=== PATIENT | male | born 1960 | race Two or more races ===

== ENCOUNTER 2020-01-29 11:15 | Outpatient (REF) | payer MEDICARE, MEDICAID, SELFPAY | END 2020-01-29 11:16 | disposition home or self-care (01) | LOC: HO.LAB 11:15 | PROVIDERS: PCP Internal Medicine; Visit Provider Internal Medicine | DX: Z20.828 Contact with and (suspected) exposure to other viral communicable diseases (principal) | CPT/HCPCS: 87635 ==

== ENCOUNTER → 2020-03-28 11:02 | Outpatient (BNV) | payer MEDICARE, MEDICAID, SELFPAY | PROVIDERS: PCP Internal Medicine; Visit Provider Internal Medicine Medical Oncology | DX: D64.9 Anemia, unspecified (principal) | CPT/HCPCS: 99213; 99214 ==

== ENCOUNTER → 2020-07-05 13:56 | Outpatient (BNVA) | payer MEDICARE, MEDICAID, SELFPAY | PROVIDERS: PCP Internal Medicine; Visit Provider Hospitalist | DX: J45.40 Moderate persistent asthma, uncomplicated (principal); G47.33 Obstructive sleep apnea (adult) (pediatric); Z99.89 Dependence on other enabling machines and devices | CPT/HCPCS: 99212 ==

== ENCOUNTER 2021-07-06 12:57 | Outpatient (REF) | payer MEDICARE, MEDICAID, SELFPAY ==
--- NOTE | 2021-07-06 15:07 | PFT_ITS ---
INDICATION: Cough. SPIROMETRY: The FEV1 to FVC of 84% with an FEV1 of 1.95 L, which is 65% predicted and an FVC of 2.31 L, which is 59% predicted. No significant response to bronchodilators noted. Maximum voluntary ventilation 78% predicted. LUNG VOLUMES: Total lung capacity 70% predicted with an expiratory reserve volume of 11% predicted. DIFFUSION CAPACITY: DLCO 68% predicted. COMPARISONS: None. INTERPRETATION: No obstructive ventilatory defect. No significant response to bronchodilators noted. There is some mild decrease in maximum voluntary ventilation secondary to likely deconditioning. The patient, however, has a restrictive ventilatory defect consistent with moderate restrictive lung disease. This is likely due to his body habitus, although cannot rule out any underlying interstitial lung disease or neuromuscular conditions. The patient also has a diffusion impairment that does improve when correcting for the alveolar volume. The clinical correlation warranted. Zack Powell MD MR/MODL / [id number]
== END 2021-07-06 12:58 | disposition home or self-care (01) ==
LOC: HO.RESP 12:57
PROVIDERS: PCP Internal Medicine; Visit Provider Hospitalist
DX: J45.40 Moderate persistent asthma, uncomplicated (principal); J98.4 Other disorders of lung
CPT/HCPCS: 94060; 94727; 94729; 99212

== ENCOUNTER → 2022-02-05 12:50 | Outpatient (BNVA) | payer MEDICARE, MEDICAID, SELFPAY | PROVIDERS: PCP Internal Medicine; Visit Provider Hospitalist | DX: J45.40 Moderate persistent asthma, uncomplicated (principal); G47.33 Obstructive sleep apnea (adult) (pediatric); J98.4 Other disorders of lung; Z99.89 Dependence on other enabling machines and devices | CPT/HCPCS: 99212 ==

== ENCOUNTER → 2022-10-08 10:43 | Outpatient (BNVA) | payer MEDICARE, MEDICAID, SELFPAY | PROVIDERS: PCP Internal Medicine; Visit Provider Hospitalist | DX: J45.40 Moderate persistent asthma, uncomplicated (principal); J98.4 Other disorders of lung; G47.33 Obstructive sleep apnea (adult) (pediatric); Z99.89 Dependence on other enabling machines and devices | CPT/HCPCS: 99212 ==

== ENCOUNTER 2022-11-28 10:46 | Outpatient (REF) | payer MEDICARE, MEDICAID, SELFPAY ==
--- NOTE | ~2022-11-28 | XR_ITS ---
EXAMINATION: XR CHEST CLINICAL INFORMATION: Other disorders of lung COMPARISON: May 2019. TECHNIQUE: 2 views of the chest were obtained. FINDINGS: No airspace and solid aspiration noted. Pulmonary vascularity unremarkable. No evidence for hilar adenopathy. There is slight blunting in a posterior sulcus which could reflect a minimal effusion or pleural thickening/reaction. XR/XR chest 2V IMPRESSION: No airspace infiltrates. Minimal blunting of a posterior sulcus on the lateral view may be related to a minimal effusion or pleural thickening/reaction.
== END 2022-11-28 10:47 | disposition home or self-care (01) ==
LOC: HO.XRAY 10:46
PROVIDERS: Visit Provider Hospitalist
DX: J98.4 Other disorders of lung (principal)
CPT/HCPCS: 71046

== ENCOUNTER 2023-01-08 08:46 | Outpatient (AMB) | payer MEDICARE, MEDICAID, SELFPAY ==
--- NOTE | 2023-01-08 08:52 | MHC.OFFVIS ---
Intake Intake Visit Reasons: BPH with lower urinary symtoms/ PSA 3.8 Intake Note: New Patient presents for initial visit BPH (psa 3.8) Urology Medications: tamsulosin Blood Thinner: none PVR: 0ml's Audiology Director Required: Yes Audiology Director Name: Helena Accompanied by: Self / Same As Patient Allergies No Known Allergies Allergy (Verified 01/08/23 09:30) Medication List - Last Reconciled 01/08/23 by DANIKA EganP- albuterol sulfate 90 mcg/actuation 2 puffs PO Q6H PRN albuterol sulfate 2.5 mg (3 mL) inhalation Q6H PRN 30 days allopurinol 1 tab PO DAILY atorvastatin 40 mg PO DAILY carvedilol 1 tab PO BID cholecalciferol (vitamin D3) 50 mcg PO DAILY citalopram mg PO insulin glargine (Basaglar KwikPen U-100 Insulin) 12 units subcut BEDTIME meclizine 1 tab PO TID metformin 1,000 mg PO BID montelukast 10 mg PO QPM pantoprazole 1 tab PO BID quetiapine 25 - 50 mg PO BEDTIME Symbicort 160-4.5 mcg/actuation (budesonide-formoterol) 2 puffs PO BID NS tamsulosin 0.4 mg PO DAILY valsartan 1 tab PO DAILY HPI HPI Comments History of Present Illness Details Pedro is a very pleasant 62-year-old Greenlandic-speaking male patient of . He has a past medical history of chronic restrictive lung disease, RAMONA on CPAP, vertigo, gout, hyperlipidemia, hypertension, palpitations, diabetes, asthma, and anemia.He presents to the office today as a new patient for lower urinary tract symptoms and elevated PSA. In discussion with the patient today reports to be doing and feeling well. It appears PSA was drawn by PCP in noted to be 3.8 in September of this year. He discusses having urinary urgency and frequency. However when asked he does report large voids. He reports having started tamsulosin with PCP and feels urination symptoms have improved. He otherwise denies incontinence, nocturia, hematuria, dysuria, foul smelling urine, changes to urinary stream, flank pain, fever, and or chills. He is happy with his current voiding parameters on flomax 0.4mg daily. He discusses PCP performing EMMETT and noted enlarged prostate. Discussed at length redraw of PSA with no sex the night before, no caffeine morning of, and no heavy lifting 1-2 days prior. Will obtain retroperitoneal ultrasound for further assessment evaluation. In office urinalysis results reviewed with the patient today. PVR 0 mL. He otherwise offers no other issues or concerns at this time. [facility] Medical History Chronic restrictive lung disease RAMONA on CPAP Vertigo Gout Hyperlipemia Hypertension Heart palpitations Diabetes Asthma Anemia Surgical History H/O eye surgery Hx of cholecystectomy H/O knee surgery Family History Other No family history of cancer Social History Household Members: Significant Other Housing: Apartment Are you a primary care nurse rn to a significant other at home: No Do you presently have visiting nurse or other home services: Yes Alcohol intake: former Patient Tobacco Use Status: Never used Tobacco Substance Use Type: Crack/Cocaine service: No Current occupational status: disabled Review of Systems Const Reports as per HPI Eyes Reports no additional complaints ENT Reports no additional complaints Card Reports as per HPI Resp Reports as per HPI GI Reports no additional complaints Reports as per HPI Musc Reports no additional complaints Neuro Reports no additional complaints Psych Reports no additional complaints Endo Reports as per HPI Perez/Lymph Reports no additional complaints Aller/Immun Reports no additional complaints Physical Exam Const General: cooperative, healthy appearing, comfortable, no acute distress, well developed, alert and awake Orientation/consciousness: patient oriented x3 Limitations: no limitations HEENT Head: Yes normal to inspection, Yes normocephalic and Yes atraumatic Ears: hearing grossly normal bilaterally Eyes General: appearance normal, both eyes and all related structures Neck Neck: Yes normal visual inspection and Yes trachea midline Chest Chest palpation & inspection: normal inspection of the chest Resp Effort & Inspection: normal respiratory effort and able to speak in complete sentences Cardio Rate: regular rate GI Inspection: Yes normal to inspection General: Yes no CVA tenderness Back/Spine/Pelvis Back: no CVA tenderness Skin General skin exam: no rashes or lesions noted Neuro General: patient oriented x3 Extrem General: Yes normal to inspection Psych Appearance: grossly normal and well kempt Mental Status: mental status grossly normal Speech and movement: Normal speech and movement present and Clear speech present Affect: normal affect Attitude: cooperative Thought process: Normal thought process present Thought content: Normal thought content present Insight: Good insight present (Psych) Judgement: Good judgement present (Psych) Office Procedures Post Void Residual Post Residual Void Post Void Residual (PVR): 0 42311-Cjzw Void Residual by ultrasound Results AMB Urinalysis, Automated UA Leukoctes 0 Martha/uL Last Edit by Lexii Montoya on 01/08/23 09:05 UA Nitrite Negative Last Edit by Lexii Montoya on 01/08/23 09:05 UA Urobilinogen 0.2 mg/dL Last Edit by [employer] Montoya on 01/08/23 09:05 UA Protein 30 mg/dL Last Edit by Lexii Montoya on 01/08/23 09:05 UA pH 6.5 Last Edit by Lexii Montoya on 01/08/23 09:05 UA Blood 0 Chinmay/uL Last Edit by Lexii Montoya on 01/08/23 09:05 UA Specific [place] 1.010 Last Edit by The Author Hubjanak Montoya on 01/08/23 09:05 UA Ketone Negative Last Edit by [employer] on 01/08/23 09:05 UA Bilirubin 0 mg/dL Last Edit by [employer] Montoya on 01/08/23 09:05 UA Glucose 0 mg/dL Last Edit by Marco AntonioWuxi Q[employer] Montoya on 01/08/23 09:05 Results Reviewed Results Reviewed: Laboratory Last Values Urine pH (Auto) 6.5 01/08/23 08:55 Specific [place] (Auto) 1.010 01/08/23 08:55 Urine Protein (Auto) 30 mg/dL 01/08/23 08:55 Glucose (UA)(Auto) 0 mg/dL 01/08/23 08:55 Urine Ketones (Auto) Negative 01/08/23 08:55 Urine Blood (Auto) 0 Chinmay/uL 01/08/23 08:55 Urine Nitrite (Auto) Negative 01/08/23 08:55 Urine Bilirubin (Auto) 0 mg/dL 01/08/23 08:55 Urine Urobilinogen (Auto) 0.2 mg/dL 01/08/23 08:55 Leukocyte Esterase (Auto) 0 Martha/uL 01/08/23 08:55 Assessment & Plan Assessment & Plan (1) Elevated PSA: Code(s): R97.20 - Elevated prostate specific antigen [PSA] (2) Urinary urgency: Code(s): R39.15 - Urgency of urination Plan In office urinalysis results reviewed with the patient today; as noted above. PVR 0 mL. Continue Flomax 0.4 mg as prescribed. Will obtain redraw of PSA with no sex the night before, no caffeine morning of and no heavy lifting 1-2 days prior to lab draw. Will obtain retroperitoneal ultrasound for further assessment evaluation. Discussed possible near future in office cystoscopy if symptoms persist and/or worsen. EMMETT offered however deferred patient reports completed with PCP. Follow-up in 4-6 weeks with imaging and lab to be completed prior or sooner with any questions, concerns, and or issues. Orders: Orders PSA,Total (Free>4and<10) Today R97.20 - Elevated prostate specific antigen [PSA] AMB Urinalysis Automated Today Z13.9 - Encounter for screening, unspecified AMB Post Void Residual by ultrasound Today Z13.9 - Encounter for screening, unspecified US retroperitoneal comp Today R39.15 - Urgency of urination Patient Instructions: The patient had an opportunity to ask questions regarding the treatment plan. All questions were answered. Physical exam, labs, and imaging were discussed and reviewed in detail. As well as risks, benefits, and discussion of treatment choices. No major barriers to understanding were identified. The patient expressed understanding and agreement with the above treatment plan. The patient was made aware they should contact our office by phone for worsening of their current condition, the appearance of new symptoms, or with any questions or concerns. Compliance is encouraged with any medications and follow up testing that is ordered. It is a privilege to be allowed the opportunity to participate in? your urological care.? Again, if you have any questions or concerns If you have any questions or concerns please do not hesitate to contact me. The office is [phone]. This note is constructed using voice recognition software. While every effort has been made to ensure accuracy environmental studies professor errors may have been included. Yours sincerely, JOVANI Egan Coding Level of Care Code New Pt Level 3 (95692) Diagnoses Elevated PSA R97.20 Urinary urgency R39.15 CPT Codes Post Residual Void - PVR CPT Code: 52634-Wmic Void Residual by ultrasound ([id number])
== END 2023-01-08 13:21 | disposition home or self-care (01) ==
PROVIDERS: PCP Internal Medicine; Visit Provider Nurse Practitioner Family
DX: R97.20 Elevated prostate specific antigen [PSA] (principal); R39.15 Urgency of urination; Z13.9 Encounter for screening, unspecified
CPT/HCPCS: 99203

== ENCOUNTER → 2023-01-08 08:46 | Outpatient (BNVA) | payer MEDICARE, MEDICAID, SELFPAY | PROVIDERS: PCP Internal Medicine; Visit Provider Nurse Practitioner Family | DX: R97.20 Elevated prostate specific antigen [PSA] (principal); R39.15 Urgency of urination | CPT/HCPCS: 51798; 81003 ==

== ENCOUNTER 2023-01-11 07:08 | Outpatient (REF) | payer MEDICARE, MEDICAID, SELFPAY ==
[2023-01-11 11:13] LABS: MANUAL DIFF FLAG NO
[2023-01-11 11:41] LABS: Basophils Percent Auto 0.8 % (0-2); Eosinophils Absolute Auto 0.3 X10*3/uL (0.0-0.4); Eosinophils Percent Auto 5.6 % (0-4); Hematocrit 35.1 % (42.0-52.0); Hemoglobin 10.9 g/dl (14.0-18.0); Imm Gran Abs Auto 0.01 X10*3/uL (0.00-0.03); Imm Gran Pct Auto 0.2 % (0.0-0.4); Mean Corpuscular HGB Conc 31.1 g/dl (31.0-36.0); Mean Corpuscular Hemoglobin 25.3 pg (27.0-33.0); Mean Corpuscular Volume 81.6 fL (80.0-98.0); Mean Platelet Volume 12.7 fL (9.4-12.4); Monocytes Absolute Auto 0.4 X10*3/uL (0.1-1.2); Monocytes Percent Auto 8.3 % (2-11); Neutrophils Absolute Auto 2.6 x10*3/uL (2.0-8.3); Neutrophils Percent Auto 48.1 % (45-73); Platelet Count 225 X10*3/uL (160-400); Red Cell Distribution Width 14.6 % (11.0-16.0); White Blood Count 5.3 X10*3/uL (4.8-10.8)
[2023-01-11 12:07] LABS: Alanine Aminotransferase 20 U/L (0-40); Alkaline Phosphatase 46 U/L (39-117); Anion Gap 10 (12-20); Aspartate Amino Transferase 21 U/L (5-37); Bilirubin Total 0.5 mg/dL (0.0-1.0); Blood Urea Nitrogen 13 mg/dL (9-16); Calcium 9.3 mg/dL (8.4-10.2); Carbon Dioxide 30 mmol/L (22-29); Chloride 107 mmol/L (96-108); Estimated Glomerular Filt Rate > 60; Glucose Random 95 mg/dL (60-115); Iron 41 mcg/dL (45-160); Percent Iron Saturation 16 % (15-50); Potassium 4.5 mmol/L (3.3-5.1); Sodium 142 mmol/L (135-145); Total Iron Binding Capacity 254 mcg/dL (228-428); Total Protein 7.1 g/dL (6.5-8.0); Unsaturated Iron Binding 213 ug/dL
[2023-01-11 12:19] LABS: PSA,Total (Free>4and<10) 3.41 ng/mL (0.00-4.00)
[2023-01-11 12:33] LABS: Ferritin 64 ng/mL (20-250)
[2023-01-14 13:04] LABS: Erythropoietin (EPO) 9.4 mIU/mL (2.6-18.5)
== END 2023-01-11 07:09 | disposition home or self-care (01) ==
LOC: HO.WFDLDS 07:08
PROVIDERS: Nurse Practitioner Family; Visit Provider Internal Medicine Medical Oncology
DX: R97.20 Elevated prostate specific antigen [PSA] (principal); D63.8 Anemia in other chronic diseases classified elsewhere; Z12.5 Encounter for screening for malignant neoplasm of prostate
CPT/HCPCS: 36415; 80053; 82668; 82728; 83540; 84153; 85025

== ENCOUNTER 2023-01-31 10:36 | Outpatient (REF) | payer MEDICARE, MEDICAID, SELFPAY ==
--- NOTE | ~2023-01-31 | US_ITS ---
EXAMINATION: US RETROPERITONEAL COMPLETE (RENAL) CLINICAL INFORMATION: Urgency of urination. COMPARISON: None available. TECHNIQUE: Real-time imaging of the kidneys and bladder. Limited visualization due to bowel gas. FINDINGS: RIGHT KIDNEY: 12.2 x 6.4 x 5.8 cm (SAG x AP x TRV). No hydronephrosis. No renal calculi. Renal cortical thickness is normal. Limited visualization. 2.6 cm upper pole, 2.1 cm midpole, 1.6 cm lower pole and 1.2 cm upper pole cysts with benign features. There is no indication for followup imaging. LEFT KIDNEY: 12.0 x 6.3 x 5.0 cm (SAG x AP x TRV). No hydronephrosis. No renal calculi. Renal cortical thickness is normal. Limited visualization. Multiple renal cysts, largest 1.5 cm upper pole, 2.5 cm upper pole and 1.4 cm midpole with benign features. There is no indication for followup imaging. BLADDER: Well distended. Diffuse irregularity of the bladder wall. Bladder wall thickness of 0.4 cm. Bilateral ureteral jets are demonstrated. Prevoid bladder volume is 310.7 mL. Postvoid bladder volume is 15.6 mL. ADDITIONAL FINDINGS: Prostate volume 26 mL US/US retroperitoneal comp IMPRESSION: 1. No hydronephrosis. No renal calculi. 2. Diffuse irregularity and borderline thickening of the bladder wall. Prostate volume 26 mL.
== END 2023-01-31 10:37 | disposition home or self-care (01) ==
LOC: HO.US 10:36
PROVIDERS: PCP Internal Medicine; Visit Provider Nurse Practitioner Family
DX: R39.15 Urgency of urination (principal)
CPT/HCPCS: 76770

== ENCOUNTER 2023-02-19 09:26 | Outpatient (AMB) | payer MEDICARE, MEDICAID, SELFPAY ==
--- NOTE | 2023-02-19 09:28 | A.OFFVIS_ITS ---
Intake Intake Visit Reasons: 6 wk follow up/ US/ Labs(set) Intake Note: Patient presents for a follow-up BPH Urology Medications: Tamsulosin Blood Thinner: none PSA Results 3.41 ng/mL 01/11/2023 PVR: 72 mL Freight Breaker Required: Yes Freight Breaker Language: [place]ese Information Interpreted: non-clinical & clinical Accompanied by: Self / Same As Patient Allergies No Known Allergies Allergy (Verified 01/08/23 09:30) Medication List - Last Reconciled 02/19/23 by CHERYL Egan-LAURA albuterol sulfate 90 mcg/actuation 2 puffs PO Q6H PRN albuterol sulfate 2.5 mg (3 mL) inhalation Q6H PRN 30 days allopurinol 1 tab PO DAILY atorvastatin 40 mg PO DAILY carvedilol 1 tab PO BID cholecalciferol (vitamin D3) 50 mcg PO DAILY citalopram mg PO insulin glargine (Basaglar KwikPen U-100 Insulin) 12 units subcut BEDTIME meclizine 1 tab PO TID metformin 1,000 mg PO BID montelukast 10 mg PO QPM pantoprazole 1 tab PO BID quetiapine 25 - 50 mg PO BEDTIME Symbicort 160-4.5 mcg/actuation (budesonide-formoterol) 2 puffs PO BID NS tamsulosin 0.4 mg PO DAILY valsartan 1 tab PO DAILY HPI HPI Comments History of Present Illness Details Pedro is a very pleasant 62-year-old [place]ese-speaking male patient of Dr Lombardi. He has a past medical history of chronic restrictive lung disease, RAMONA on CPAP, vertigo, gout, hyperlipidemia, hypertension, palpitations, diabetes, asthma, and anemia. He presents to the office today for follow-up. Of note, patient was seen approximately 6 weeks ago as a new patient for lower urinary tract symptoms and elevated PSA at which time the patient was started on Flomax, a retroperitoneal ultrasound and PSA were ordered for further assessment evaluation. These results reviewed with the patient today. Right kidney with no hydronephrosis or renal calculi. A 2.6 cm upper pole, 2.1 cm midpole, 1.6 cm lower pole and 1.2 cm upper pole cysts with benign features. There is no indication for followup imaging per radiology report. Left kidney with no hydronephrosis or renal calculi. Multiple renal cysts, largest 1.5 cm upper pole, 2.5 cm upper pole and 1.4 cm midpole with benign features. There is no indication for followup imaging per radiology report. The bladder is well distended. Diffuse irregularity of bladder wall. Bladder wall thickness of 0.4 cm. Bilateral ureteral jets are demonstrated. Pre void bladder volume is approximately 310 mL. Postvoid bladder volume is approximately 15 mL. When asked patient reports noting somewhat improvement lower urinary tract symptoms since trial of tamsulosin. He does however continue to report somewhat bothersome urinary frequency during the day. He otherwise denies incontinence, nocturia, hematuria, dysuria, foul smelling urine, changes to urinary stream, flank pain, fever, and or chills. He discusses PCP performing EMMETT and noted enlarged prostate. PSAs are as follows: 10/12--3.8 01/12--3.4 Discussed somewhat minimal drop in PSA. Discussed potential causes for borderline elevated PSA. Discussed prostate biopsy versus surveillance monitoring verses trial of finasteride. Discussed risks and benefits of prostate biopsy verses surveillance monitoring verses trial finasteride. In office urinalysis results reviewed with the patient today. PVR 72 mL. He otherwise offers no other issues or concerns at this time. [facility] Medical History Chronic restrictive lung disease RAMONA on CPAP Vertigo Gout Hyperlipemia Hypertension Heart palpitations Diabetes Asthma Anemia Surgical History H/O eye surgery Hx of cholecystectomy H/O knee surgery Family History (Updated 02/19/23 @ 09:33 by TOM Mazariegos) Father No problems noted. Mother No problems noted. Other No family history of cancer Social History Household Members: Significant Other Housing: Apartment Are you a primary career development facilitator to a significant other at home: No Do you presently have visiting nurse or other home services: Yes Alcohol intake: former Patient Tobacco Use Status: Never used Tobacco Substance Use Type: Crack/Cocaine service: No Current occupational status: disabled Review of Systems Const Reports as per HPI Eyes Reports no additional complaints ENT Reports no additional complaints Card Reports as per HPI Resp Reports as per HPI GI Reports no additional complaints Reports as per HPI Musc Reports no additional complaints Neuro Reports no additional complaints Psych Reports no additional complaints Endo Reports as per HPI Perez/Lymph Reports no additional complaints Aller/Immun Reports no additional complaints Physical Exam Const General: cooperative, healthy appearing, comfortable, no acute distress, well developed, alert and awake Orientation/consciousness: patient oriented x3 Limitations: no limitations HEENT Head: Yes normal to inspection, Yes normocephalic and Yes atraumatic Ears: hearing grossly normal bilaterally Eyes General: appearance normal, both eyes and all related structures Neck Neck: Yes normal visual inspection and Yes trachea midline Chest Chest palpation & inspection: normal inspection of the chest Resp Effort & Inspection: normal respiratory effort and able to speak in complete sentences Cardio Rate: regular rate GI Inspection: Yes normal to inspection General: Yes no CVA tenderness Back/Spine/Pelvis Back: no CVA tenderness Skin General skin exam: no rashes or lesions noted Neuro General: patient oriented x3 Extrem General: Yes normal to inspection Psych Appearance: grossly normal and well kempt Mental Status: mental status grossly normal Speech and movement: Normal speech and movement present and Clear speech present Affect: normal affect Attitude: cooperative Thought process: Normal thought process present Thought content: Normal thought content present Insight: Good insight present (Psych) Judgement: Good judgement present (Psych) Office Procedures Post Void Residual Post Residual Void Post Void Residual (PVR): 72 [id number] Void Residual by ultrasound Results AMB Urinalysis, Automated UA Leukoctes 0 Martha/uL Last Edit by TOM Mazariegos on 02/19/23 09:47 UA Nitrite Negative Last Edit by TOM Mazariegos on 02/19/23 09:47 UA Urobilinogen 0.2 mg/dL Last Edit by TOM Mazariegos on 02/19/23 09:4 7 UA Protein 30 mg/dL Last Edit by TOM Mazariegos on 02/19/23 09:47 1+ Mary Hinkle 02/19/23 09:47 UA pH 6.5 Last Edit by TOM Mazariegos on 02/19/23 09:47 UA Blood 6.5 Chinmay/uL Last Edit by TOM Mazariegos on 02/19/23 09:47 UA Specific [place] 1.010 Last Edit by TOM Mazariegos on 02/19/23 09: 47 UA Ketone Negative Last Edit by TOM Mazariegos on 02/19/23 09:47 UA Bilirubin 0 mg/dL Last Edit by TOM Mazariegos on 02/19/23 09:47 UA Glucose 0 mg/dL Last Edit by TOM Mazariegos on 02/19/23 09:47 Results Reviewed Results Reviewed: Laboratory Last Values Urine pH (Auto) 6.5 02/19/23 09:33 Specific [place] (Auto) 1.010 02/19/23 09:33 Urine Protein (Auto) 30 mg/dL 02/19/23 09:33 Glucose (UA)(Auto) 0 mg/dL 02/19/23 09:33 Urine Ketones (Auto) Negative 02/19/23 09:33 Urine Blood (Auto) 6.5 Chinmay/uL 02/19/23 09:33 Urine Nitrite (Auto) Negative 02/19/23 09:33 Urine Bilirubin (Auto) 0 mg/dL 02/19/23 09:33 Urine Urobilinogen (Auto) 0.2 mg/dL 02/19/23 09:33 Leukocyte Esterase (Auto) 0 Martha/uL 02/19/23 09:33 Date of Service: 01/31/23 EXAMINATION: US RETROPERITONEAL COMPLETE (RENAL) FINDINGS: RIGHT KIDNEY: 12.2 x 6.4 x 5.8 cm (SAG x AP x TRV). No hydronephrosis. No renal calculi. Renal cortical thickness is normal. Limited visualization. 2.6 cm upper pole, 2.1 cm midpole, 1.6 cm lower pole and 1.2 cm upper pole cysts with benign features. There is no indication for followup imaging. LEFT KIDNEY: 12.0 x 6.3 x 5.0 cm (SAG x AP x TRV). No hydronephrosis. No renal calculi. Renal cortical thickness is normal. Limited visualization. Multiple renal cysts, largest 1.5 cm upper pole, 2.5 cm upper pole and 1.4 cm midpole with benign features. There is no indication for followup imaging. BLADDER: Well distended. Diffuse irregularity of the bladder wall. Bladder wall thickness of 0.4 cm. Bilateral ureteral jets are demonstrated. Prevoid bladder volume is 310.7 mL. Postvoid bladder volume is 15.6 mL. ADDITIONAL FINDINGS: Prostate volume 26 mL IMPRESSION: 1. No hydronephrosis. No renal calculi. 2. Diffuse irregularity and borderline thickening of the bladder wall. Prostate volume 26 mL. Assessment & Plan Assessment & Plan (1) Urinary urgency: Code(s): R39.15 - Urgency of urination (2) Urinary frequency: Code(s): R35.0 - Frequency of micturition (3) Renal cyst: Code(s): N28.1 - Cyst of kidney, acquired Plan In office urinalysis results reviewed with the patient today; as noted above. PVR 72 mL. Start finasteride as discussed and prescribed. Stop Flomax as discussed. Start terazosin 5 mg as discussed and prescribed. Recent retroperitoneal ultrasound results reviewed with the patient today; as noted above. Recent PSA results reviewed with the patient today. Discussed at length potential causes for lower urinary tract symptoms patient is experiencing. Discussed at length surveillance monitoring of PSA verses trial finasteride verses prostate biopsy; risks and benefits of these interventions were discussed at length Will obtain PSA in 4 months. Follow-up in 4 months with lab to be completed prior; or sooner with any issues, concerns, and or questions. Orders: Orders AMB Urinalysis Automated Today Z13.9 - Encounter for screening, unspecified AMB Post Void Residual by ultrasound Today N39.8 - Other specified disorders of urinary system PSA,Total (Free>4and<10) 4 Months R97.20 - Elevated prostate specific antigen [PSA] Medications: New terazosin 5 mg PO BEDTIME 90 days 90 caps 1RF N40.1 - Benign prostatic hyperplasia with lower urinary tract symptoms, R35.0 - Frequency of micturition finasteride 5 mg PO DAILY 90 days 90 tabs 1RF N13.8 - Other obstructive and reflux uropathy, N40.1 - Benign prostatic hyperplasia with lower urinary tract symptoms, R33.9 - Retention of urine, unspecified Patient Instructions: The patient had an opportunity to ask questions regarding the treatment plan. All questions were answered. Physical exam, labs, and imaging were discussed and reviewed in detail. As well as risks, benefits, and discussion of treatment choices. No major barriers to understanding were identified. The patient expressed understanding and agreement with the above treatment plan. The patient was made aware they should contact our office by phone for worsening of their current condition, the appearance of new symptoms, or with any questions or concerns. Compliance is encouraged with any medications and follow up testing that is ordered. It is a privilege to be allowed the opportunity to participate in? your urological care.? Again, if you have any questions or concerns If you have any questions or concerns please do not hesitate to contact me. The office is [phone]. This note is constructed using voice recognition software. While every effort has been made to ensure accuracy water meter mechanic errors may have been included. Yours sincerely, JOVANI Egan Coding Level of Care Code Est Pt Level 4 (89463) Diagnoses Urinary urgency R39.15 Urinary frequency R35.0 Renal cyst N28.1 CPT Codes Post Residual Void - PVR CPT Code: 68206-Msnk Void Residual by ultrasound ([id number])
== END 2023-02-19 10:03 | disposition home or self-care (01) ==
PROVIDERS: PCP Internal Medicine; Visit Provider Nurse Practitioner Family
DX: R39.15 Urgency of urination (principal); R35.0 Frequency of micturition; N28.1 Cyst of kidney, acquired
CPT/HCPCS: 99214

== ENCOUNTER → 2023-02-19 09:26 | Outpatient (BNVA) | payer MEDICARE, MEDICAID, SELFPAY | PROVIDERS: PCP Internal Medicine; Visit Provider Nurse Practitioner Family | DX: R39.15 Urgency of urination (principal); R35.0 Frequency of micturition; N28.1 Cyst of kidney, acquired | CPT/HCPCS: 51798; 81003; 99212 ==

== ENCOUNTER 2023-07-17 07:19 | Outpatient (REF) | payer MEDICARE, MEDICAID, SELFPAY ==
[2023-07-17 11:46] LABS: MANUAL DIFF FLAG NO
[2023-07-17 11:49] LABS: Basophils Percent Auto 0.7 % (0-2); Eosinophils Absolute Auto 0.3 X10*3/uL (0.0-0.4); Eosinophils Percent Auto 5.9 % (0-4); Hematocrit 33.6 % (42.0-52.0); Hemoglobin 10.5 g/dl (14.0-18.0); Imm Gran Abs Auto 0.01 X10*3/uL (0.00-0.03); Imm Gran Pct Auto 0.2 % (0.0-0.4); Lymphocytes Absolute Auto 2.2 X10*3/uL (1.2-4.9); Mean Corpuscular HGB Conc 31.3 g/dl (31.0-36.0); Mean Corpuscular Hemoglobin 25.3 pg (27.0-33.0); Mean Platelet Volume 11.9 fL (9.4-12.4); Monocytes Absolute Auto 0.5 X10*3/uL (0.1-1.2); Monocytes Percent Auto 8.4 % (2-11); Neutrophils Absolute Auto 2.4 x10*3/uL (2.0-8.3); Neutrophils Percent Auto 43.8 % (45-73); Platelet Count 175 X10*3/uL (160-400); Red Blood Count 4.15 X10*6/uL (4.60-5.80); Red Cell Distribution Width 14.7 % (11.0-16.0); White Blood Count 5.5 X10*3/uL (4.8-10.8)
[2023-07-17 12:09] LABS: Alanine Aminotransferase 25 U/L (0-40); Albumin Level 3.8 g/dL (3.5-5.0); Alkaline Phosphatase 53 U/L (39-117); Anion Gap 10 (12-20); Aspartate Amino Transferase 20 U/L (5-37); Bilirubin Total 0.4 mg/dL (0.0-1.0); Blood Urea Nitrogen 17 mg/dL (9-16); Calcium 8.6 mg/dL (8.4-10.2); Carbon Dioxide 31 mmol/L (22-29); Chloride 107 mmol/L (96-108); Estimated Glomerular Filt Rate 54; Glucose Random 110 mg/dL (60-115); Iron 41 mcg/dL (45-160); Percent Iron Saturation 19 % (15-50); Potassium 3.9 mmol/L (3.3-5.1); Sodium 144 mmol/L (135-145); Total Iron Binding Capacity 219 mcg/dL (228-428); Total Protein 6.7 g/dL (6.5-8.0); Unsaturated Iron Binding 178 ug/dL
[2023-07-17 12:16] LABS: PSA,Total (Free>4and<10) 1.17 ng/mL (0.00-4.00)
[2023-07-17 12:20] LABS: Ferritin 65 ng/mL (20-250)
== END 2023-07-17 07:20 | disposition home or self-care (01) ==
LOC: HO.WFDLDS 07:19
PROVIDERS: Referring Provider Nurse Practitioner Family; Visit Provider Internal Medicine Medical Oncology
DX: D64.9 Anemia, unspecified (principal); R97.20 Elevated prostate specific antigen [PSA]; Z12.5 Encounter for screening for malignant neoplasm of prostate
CPT/HCPCS: 36415; 80053; 82728; 83540; 84153; 85025

== ENCOUNTER 2023-07-30 13:19 | Outpatient (AMB) | payer MEDICARE, MEDICAID, SELFPAY ==
--- NOTE | 2023-07-30 13:21 | A.OFFVIS_ITS ---
Intake Intake Visit Reasons: 4m/PSA/PVR Intake Note: Patient presents today for a follow up on: PSA/PVR Meds- Terazosin, Finaster Allergies to Antibiotic- No Known Allergies Blood Thinner- None Post Void Residual: 38ml Foundation Relations Manager Required: No Accompanied by: Self / Same As Patient Allergies No Known Allergies Allergy (Verified 07/30/23 14:13) Medication List - Last Reconciled 07/30/23 by CHERYL Egan- albuterol sulfate 90 mcg/actuation 2 puffs PO Q6H PRN albuterol sulfate 2.5 mg (3 mL) inhalation Q6H PRN 30 days allopurinol 1 tab PO DAILY atorvastatin 40 mg PO DAILY carvedilol 1 tab PO BID cholecalciferol (vitamin D3) 50 mcg PO DAILY citalopram mg PO finasteride 5 mg PO DAILY 90 days insulin glargine (Basaglar KwikPen U-100 Insulin) 12 units subcut BEDTIME meclizine 1 tab PO TID metformin 1,000 mg PO BID montelukast 10 mg PO QPM pantoprazole 1 tab PO BID quetiapine 25 - 50 mg PO BEDTIME Symbicort 160-4.5 mcg/actuation (budesonide-formoterol) 2 puffs PO BID NS terazosin 5 mg PO BEDTIME 90 days valsartan 1 tab PO DAILY HPI HPI Comments History of Present Illness Details Pedro is a very pleasant 62-year-old [place]-speaking male patient of . He has a past medical history of chronic restrictive lung disease, RAMONA on CPAP, vertigo, gout, hyperlipidemia, hypertension, palpitations, diabetes, asthma, and anemia. He presents to the office today for follow-up. In discussion with the patient today reports to be doing and feeling well. Recent PSA results reviewed with the patient today. PSAs are as follows: 10/12--3.8 01/12--3.4 07/13--1.2 Previous workup has included a retroperitoneal ultrasound noting right kidney with no hydronephrosis or renal calculi. A 2.6 cm upper pole, 2.1 cm midpole, 1.6 cm lower pole and 1.2 cm upper pole cysts with benign features. There is no indication for followup imaging per radiology report. Left kidney with no hydronephrosis or renal calculi. Multiple renal cysts, largest 1.5 cm upper pole, 2.5 cm upper pole and 1.4 cm midpole with benign features. There is no indication for followup imaging per radiology report. The bladder is well distended. Diffuse irregularity of bladder wall. Bladder wall thickness of 0.4 cm. Bilateral ureteral jets are demonstrated. Pre void bladder volume is approximately 310 mL. Postvoid bladder volume is approximately 15 mL. He currently denies any bothersome urinary issues or concerns. Reports be happy with current voiding parameters on 5 mg of terazosin at bedtime. In office urinalysis results reviewed with the patient today 2+ proteinuria. He otherwise denies urinary urgency, urinary frequency, incontinence, nocturia, hematuria, dysuria, foul smelling urine, changes to urinary stream, flank pain, fever, and or chills. PVR 38 mL. He otherwise offers no other issues or concerns at this time. [facility] Medical History Chronic restrictive lung disease RAMONA on CPAP Vertigo Gout Hyperlipemia Hypertension Heart palpitations Diabetes Asthma Anemia Surgical History H/O eye surgery Hx of cholecystectomy H/O knee surgery Family History Father No problems noted. Mother No problems noted. Other No family history of cancer Social History Household Members: Significant Other Housing: Apartment Are you a primary cardiac care nurse to a significant other at home: No Do you presently have visiting nurse or other home services: Yes Alcohol intake: former Patient Tobacco Use Status: Never used Tobacco Substance Use Type: Crack/Cocaine service: No Current occupational status: disabled Review of Systems Const Reports as per HPI Eyes Reports no additional complaints ENT Reports no additional complaints Card Reports as per HPI Resp Reports as per HPI GI Reports no additional complaints Reports as per HPI Musc Reports no additional complaints Neuro Reports no additional complaints Psych Reports no additional complaints Endo Reports as per HPI Perez/Lymph Reports no additional complaints Aller/Immun Reports no additional complaints Physical Exam Const General: cooperative, healthy appearing, comfortable, no acute distress, well developed, alert and awake Orientation/consciousness: patient oriented x3 Limitations: no limitations HEENT Head: Yes normal to inspection, Yes normocephalic and Yes atraumatic Ears: hearing grossly normal bilaterally Eyes General: appearance normal, both eyes and all related structures Neck Neck: Yes normal visual inspection and Yes trachea midline Chest Chest palpation & inspection: normal inspection of the chest Resp Effort & Inspection: normal respiratory effort and able to speak in complete sentences Cardio Rate: regular rate GI Inspection: Yes normal to inspection General: Yes no CVA tenderness Back/Spine/Pelvis Back: no CVA tenderness Skin General skin exam: no rashes or lesions noted Neuro General: patient oriented x3 Extrem General: Yes normal to inspection Psych Appearance: grossly normal and well kempt Mental Status: mental status grossly normal Speech and movement: Normal speech and movement present and Clear speech present Affect: normal affect Attitude: cooperative Thought process: Normal thought process present Thought content: Normal thought content present Insight: Good insight present (Psych) Judgement: Good judgement present (Psych) Office Procedures Post Void Residual Post Residual Void Post Void Residual (PVR): 38 17736-Ynth Void Residual by ultrasound Results AMB Urinalysis, Automated UA Leukoctes 0 Martha/uL Last Edit by Rachel Sanchez CMA on 07/30/23 13 :36 UA Nitrite Negative Last Edit by Rachel Sanchez CMA on 07/30/23 13: 36 UA Urobilinogen 0.2 mg/dL Last Edit by Rachel Sanchez CMA on 4 13:36 UA Protein 100 mg/dL Last Edit by Rachel Sanchez CMA on 07/30/23 13: 36 UA pH 6.0 Last Edit by Rachel Sanchez [facility] on 07/30/23 13:36 UA Blood 0 Chinmay/uL Last Edit by Rachel Sanchez [facility] on 07/30/23 13:36 UA Specific [place] 1.010 Last Edit by Rachel Sanchez [facility] on 13:36 UA Ketone Negative Last Edit by Rachel Sanchez [facility] on 07/30/23 13:3 6 UA Bilirubin 0 mg/dL Last Edit by Rachel Sanchez [facility] on 07/30/23 13: 36 UA Glucose 0 mg/dL Last Edit by Rachel Sanchez [facility] on 07/30/23 13:36 Results Reviewed Results Reviewed: Laboratory Last Values Urine pH (Auto) 6.0 07/30/23 13:22 Specific [place] (Auto) 1.010 07/30/23 13:22 Urine Protein (Auto) 100 mg/dL 07/30/23 13:22 Glucose (UA)(Auto) 0 mg/dL 07/30/23 13:22 Urine Ketones (Auto) Negative 07/30/23 13:22 Urine Blood (Auto) 0 Chin[place]/uL 07/30/23 13:22 Urine Nitrite (Auto) Negative 07/30/23 13:22 Urine Bilirubin (Auto) 0 mg/dL 07/30/23 13:22 Urine Urobilinogen (Auto) 0.2 mg/dL 07/30/23 13:22 Leukocyte Esterase (Auto) 0 Martha/uL 07/30/23 13:22 Assessment & Plan Assessment & Plan (1) Proteinuria: Code(s): R80.9 - Proteinuria, unspecified (2) Renal cyst: Code(s): N28.1 - Cyst of kidney, acquired (3) Urinary frequency: Code(s): R35.0 - Frequency of micturition (4) Urinary urgency: Code(s): R39.15 - Urgency of urination Plan In office urinalysis results reviewed with the patient today; as noted above. Recent PSA results reviewed and trended with the patient today; as noted above. Discussed referral to Nephrology for further assessment of 2+ protein noticed on urinalysis He otherwise denies any bothersome urinary issues or concerns. He reports be happy with current voiding parameters on 5 mg of terazosin daily. Will obtain PSA in 4-6 months. Discussed decrease in finasteride to Saturday verses Saturday in the near future if PSA continues to decrease. Discussed and stressed the importance of managing diabetes for improvement in lower urinary tract symptoms as well as overall health and well-being. Follow-up in 4-6 months with lab to be completed prior; or sooner with any issues, concerns, and or questions. Orders: Orders AMB Urinalysis Automated Today R33.9 - Retention of urine, unspecified AMB Post Void Residual by ultrasound Today R33.9 - Retention of urine, unspecified Prostate Specific Antigen 4 Months N40.0 - Benign prostatic hyperplasia without lower urinary tract symptoms Referrals 2 Nephrology Referral R80.9 - Proteinuria, unspecified Patient Instructions: The patient had an opportunity to ask questions regarding the treatment plan. All questions were answered. Physical exam, labs, and imaging were discussed and reviewed in detail. As well as risks, benefits, and discussion of treatment ch oices. No major barriers to understanding were identified. The patient expressed understanding and agreement with the above treatment plan. The patient was made aware they should contact our office by phone for worsening of their current condition, the appearance of new symptoms, or with any questions or concerns. Compliance is encouraged with any medications and follow up testing that is ordered. It is a privilege to be allowed the opportunity to participate in? your urological care.? Again, if you have any questions or concerns If you have any questions or concerns please do not hesitate to contact me. The office is [phone]. This note is constructed using voice recognition software. While every effort has been made to ensure accuracy showcase trimmer errors may have been included. Yours sincerely, JOVANI Egan Coding Level of Care Code Est Pt Level 3 (29228) Diagnoses Proteinuria R80.9 Renal cyst N28.1 Urinary frequency R35.0 Urinary urgency R39.15 CPT Codes Post Residual Void - PVR CPT Code: 06955-Ydwj Void Residual by ultrasound ([id number])
== END 2023-07-30 14:03 | disposition home or self-care (01) ==
PROVIDERS: PCP Internal Medicine; Visit Provider Nurse Practitioner Family
DX: R80.9 Proteinuria, unspecified (principal); N28.1 Cyst of kidney, acquired; R35.0 Frequency of micturition; R39.15 Urgency of urination
CPT/HCPCS: 99213

== ENCOUNTER → 2023-07-30 13:19 | Outpatient (BNVA) | payer MEDICARE, MEDICAID, SELFPAY | PROVIDERS: PCP Internal Medicine; Visit Provider Nurse Practitioner Family | DX: R80.9 Proteinuria, unspecified (principal); R35.0 Frequency of micturition; R39.15 Urgency of urination; N28.1 Cyst of kidney, acquired | CPT/HCPCS: 51798; 81003; 99212 ==

== ENCOUNTER 2023-08-13 11:14 | Outpatient (AMB) | payer MEDICARE, MEDICAID, SELFPAY ==
--- NOTE | 2023-08-13 11:16 | HO.NEPHOV ---
Vital Signs 08/13/23 11:17 Height 5 ft 5 in Weight 192 lb BMI 31.9 BP 180/98 H Blood Pressure Location Rt brachial Position Sitting Pulse 77 Pulse Source Pulse Oximeter Pulse Oximetry (%) 99 Oxygen Delivery Method Room Air Intake Visit Reasons: Proteinuria/ LVM Automatic Drill Operator Required: Yes Automatic Drill Operator Name: Ipad Automatic Drill Operator Accompanied by: Self / Same As Patient Allergies No Known Allergies Allergy (Verified 08/13/23 11:19) HPI Comments Details: 63-year-old man with a history of diabetes mellitus hypertension referred for proteinuria. He has history of chronic anemia. He was evaluated by Hematology. This was deemed to be due to chronic disease. He is iron levels were low. He has not on any iron supplementation. Today has no new complaints. No headache nausea or vomiting. No shortness of breath no edema Automatic Drill Operator service was used [facility] Medical History (Updated 08/13/23 @ 14:08 by Casey Choi MD) Chronic restrictive lung disease RAMONA on CPAP Vertigo Gout Hyperlipemia Hypertension Heart palpitations Diabetes Asthma Anemia Surgical History H/O eye surgery Hx of cholecystectomy H/O knee surgery Family History Father No problems noted. Mother No problems noted. Other No family history of cancer Social History Household Members: Significant Other Housing: Apartment Are you a primary caregivers non medical to a significant other at home: No Do you presently have visiting nurse or other home services: Yes Alcohol intake: former Patient Tobacco Use Status: Never used Tobacco Substance Use Type: Crack/Cocaine service: No Current occupational status: disabled Physical Exam Vital Signs: Last Vital Signs Pulse 77 08/13/23 11:17 BP 180/98 H 08/13/23 11:17 Pulse Ox 99 08/13/23 11:17 Oxygen Delivery Method Room Air 08/13/23 11:17 BMI result Body Mass Index 31.9 Const General: comfortable Nutritional Appearance: well nourished Orientation/consciousness: patient oriented x3 HEENT Head: No normal to inspection Mouth: moist mucous membranes Neck Neck: Yes supple and Yes no JVD Resp Auscultation: clear to auscultation bilaterally, no rales and rub present Cardio Jugular venous distension: no JVD Palpation: no palpable S3 and no palpable S4 Heart sounds: no rubs GI Palpation (GI): Soft to palpation and nontender Percussion: No Fluid wave present General: Yes no CVA tenderness Back/Spine/Pelvis Back: no CVA tenderness Skin General skin exam: no rashes or lesions noted Neuro General: patient oriented x3 Extrem General: Yes no pedal edema and No clubbing Results Reviewed Nephrology Results: Hgb 10.2 g/dl (14.0-18.0) L 08/09/23 WBC 5.7 X10*3/uL (4.8-10.8) 08/09/23 Plt Count 153 X10*3/uL (160-400) L 08/09/23 Sodium 140 mmol/L (135-145) 08/09/23 Potassium 4.2 mmol/L (3.3-5.1) 08/09/23 Chloride 106 mmol/L (96-108) 08/09/23 Carbon Dioxide 28 mmol/L (22-29) 08/09/23 BUN 13 mg/dL (9-16) 08/09/23 Creatinine 1.28 mg/dL (0.5-1.4) 08/09/23 Calcium 8.8 mg/dL (8.4-10.2) 08/09/23 Assessment & Plan Assessment & Plan (1) Proteinuria: Code(s): R80.9 - Proteinuria, unspecified Category: Medical (2) Anemia: Code(s): D64.9 - Anemia, unspecified Category: Medical (3) Hypertension: Code(s): I10 - Essential (primary) hypertension Category: Medical Plan: Plan Middle-aged man with microalbuminuria in the setting of longstanding diabetes mellitus and hypertension. Renal function stable. Serum creatinine is less than 0.8. The urine microalbumin creatinine ratio was 300. He is currently on valsartan for renal protection continue with RAAS blockade. Blood pressure should be maintained less than 130/80 and A1c less than 7%. In the office today blood pressure is suboptimal. However he tells me that his blood pressure was 102/54 earlier today when he checked at home. Since his blood pressure has wide fluctuation I will obtain a 24 hour ABP and prior to making any changes. Encouraged him to stand low-sodium diet No changes were made to his medications at this time. Orders: Orders Total Protein Urine Random 4 Weeks R80.9 - Proteinuria, unspecified AMB 24 Hour Blood Pressure Monitor PLACEMENT 4 Weeks I10 - Essential (primary) hypertension, R80.9 - Proteinuria, unspecified Creatinine Urine 4 Weeks N05.9 - Unspecified nephritic syndrome with unspecified morphologic changes, R80.9 - Proteinuria, unspecified Comprehensive Met. Panel 4 Weeks N18.9 - Chronic kidney disease, unspecified, R80.9 - Proteinuria, unspecified Coding Level of Care Code New Pt Level 4 (44145) Diagnoses Proteinuria R80.9 Anemia D64.9 Hypertension I10
[2023-08-13 11:17] VITALS: BP 180/98; PULSE 77; O2SAT 99; BMI 31.9
== END 2023-08-13 11:43 | disposition home or self-care (01) ==
PROVIDERS: PCP Internal Medicine; Visit Provider Internal Medicine Hypertension Specialist
DX: R80.9 Proteinuria, unspecified (principal); D64.9 Anemia, unspecified; I10 Essential (primary) hypertension
CPT/HCPCS: 99204

== ENCOUNTER → 2023-08-13 11:14 | Outpatient (BNVA) | payer MEDICARE, MEDICAID, SELFPAY | PROVIDERS: PCP Internal Medicine; Visit Provider Internal Medicine Hypertension Specialist | DX: R80.9 Proteinuria, unspecified (principal); D64.9 Anemia, unspecified; I10 Essential (primary) hypertension | CPT/HCPCS: 99202 ==

== ENCOUNTER → 2023-08-19 11:30 | Outpatient (BNVA) | payer MEDICARE, MEDICAID, SELFPAY | PROVIDERS: PCP Internal Medicine; Visit Provider Internal Medicine Hypertension Specialist ==

== ENCOUNTER 2023-08-20 11:16 | Outpatient (AMB) | payer MEDICARE, MEDICAID, SELFPAY ==
--- NOTE | 2023-08-20 11:25 | HO.NEPHOV_ITS ---
Vital Signs 08/20/23 11:31 Height 5 ft 5 in BP 180/90 H Blood Pressure Location Lt brachial Position Sitting Pulse 71 Pulse Source Pulse Oximeter Pulse Oximetry (%) 96 Oxygen Delivery Method Room Air Intake Visit Reasons: BPM FU/ Confirmed Probation Supervisor Required: No Probation Supervisor Name: marzena [email or web address] Accompanied by: Self / Same As Patient Allergies No Known Allergies Allergy (Verified 08/20/23 11:31) HPI Comments Details: 63-year-old man with a history of diabetes mellitus hypertension referred for proteinuria. He has history of chronic anemia. He was evaluated by Hematology. This was deemed to be due to chronic disease. He is iron levels were low. He has not on any iron supplementation. Today has no new complaints. No headache nausea or vomiting. No shortness of breath no edema Probation Supervisor service was used 08/20/23 Underwent ABPM [facility] Medical History (Updated 08/13/23 @ 14:08 by Casey Choi MD) Chronic restrictive lung disease RAMONA on CPAP Vertigo Gout Hyperlipemia Hypertension Heart palpitations Diabetes Asthma Anemia Surgical History H/O eye surgery Hx of cholecystectomy H/O knee surgery Family History Father No problems noted. Mother No problems noted. Other No family history of cancer Social History Household Members: Significant Other Housing: Apartment Are you a primary career education teacher to a significant other at home: No Do you presently have visiting nurse or other home services: Yes Alcohol intake: former Patient Tobacco Use Status: Never used Tobacco Substance Use Type: Crack/Cocaine service: No Current occupational status: disabled Physical Exam Vital Signs: Last Vital Signs Pulse 71 08/20/23 11:31 BP 180/90 H 08/20/23 11:31 Pulse Ox 96 08/20/23 11:31 Oxygen Delivery Method Room Air 08/20/23 11:31 Results Reviewed Nephrology Results: Hgb 10.2 g/dl (14.0-18.0) L 08/09/23 WBC 5.7 X10*3/uL (4.8-10.8) 08/09/23 Plt Count 153 X10*3/uL (160-400) L 08/09/23 Sodium 140 mmol/L (135-145) 08/09/23 Potassium 4.2 mmol/L (3.3-5.1) 08/09/23 Chloride 106 mmol/L (96-108) 08/09/23 Carbon Dioxide 28 mmol/L (22-29) 08/09/23 BUN 13 mg/dL (9-16) 08/09/23 Creatinine 1.28 mg/dL (0.5-1.4) 08/09/23 Calcium 8.8 mg/dL (8.4-10.2) 08/09/23 Assessment & Plan Assessment & Plan (1) Proteinuria: Code(s): R80.9 - Proteinuria, unspecified Category: Medical (2) Anemia: Code(s): D64.9 - Anemia, unspecified Category: Medical (3) Hypertension: Code(s): I10 - Essential (primary) hypertension Category: Medical Plan: Plan Middle-aged man with microalbuminuria in the setting of longstanding diabetes mellitus and hypertension. Renal function stable. Serum creatinine is less than 0.8 The urine microalbumin creatinine ratio was 300. He is currently on valsartan for renal protection continue with RAAS blockade. Blood pressure should be maintained less than 130/80 and A1c less than 7%. In the office today blood pressure is suboptimal. 24 hour ABPM shows resistant HTN Encouraged him to stand low-sodium diet Add Amlodipine 5 mg PO daily Change Valsartan 320 mg to Valsartan HCT 320/12.5 mg daily He is going to [place] in 2 weeks and will call when he gets back Medications: New amlodipine 5 mg PO DAILY 30 tabs 1RF valsartan-hydrochlorothiazide 320-12.5 mg 1 tab PO DAILY 30 tabs 1RF Coding Level of Care Code Est Pt Level 4 (96772) Diagnoses Proteinuria R80.9 Anemia D64.9 Hypertension I10
[2023-08-20 11:31] VITALS: BP 180/90; PULSE 71; O2SAT 96
== END 2023-08-20 11:46 | disposition home or self-care (01) ==
PROVIDERS: PCP Internal Medicine; Visit Provider Internal Medicine Hypertension Specialist
DX: R80.9 Proteinuria, unspecified (principal); D64.9 Anemia, unspecified; I10 Essential (primary) hypertension
CPT/HCPCS: 93790; 99214

== ENCOUNTER → 2023-08-20 11:16 | Outpatient (BNVA) | payer MEDICARE, MEDICAID, SELFPAY | PROVIDERS: PCP Internal Medicine; Visit Provider Internal Medicine Hypertension Specialist | DX: R80.9 Proteinuria, unspecified (principal); D64.9 Anemia, unspecified; I10 Essential (primary) hypertension | CPT/HCPCS: 99212 ==

== ENCOUNTER 2023-12-05 07:53 | Outpatient (REF) | payer MEDICARE, MEDICAID, SELFPAY ==
[2023-12-05 11:50] LABS: Alanine Aminotransferase 16 U/L (0-40); Alkaline Phosphatase 51 U/L (39-117); Anion Gap 15 (12-20); Aspartate Amino Transferase 23 U/L (5-37); Bilirubin Total 0.4 mg/dL (0.0-1.0); Blood Urea Nitrogen 24 mg/dL (9-16); Calcium 9.3 mg/dL (8.4-10.2); Carbon Dioxide 24 mmol/L (22-29); Chloride 101 mmol/L (96-108); Estimated Glomerular Filt Rate 52; Glucose Random 127 mg/dL (60-115); Potassium 3.8 mmol/L (3.3-5.1); Sodium 136 mmol/L (135-145); Total Protein 7.4 g/dL (6.5-8.0)
[2023-12-05 12:05] LABS: Creatinine Urine 44.72 mg/dL; Total Protein Urine Random 11 mg/dL (<12)
== END 2023-12-05 07:54 | disposition home or self-care (01) ==
LOC: HO.WFDLDS 07:53
PROVIDERS: Referring Provider Internal Medicine Hypertension Specialist; Visit Provider Nurse Practitioner Family
DX: N18.9 Chronic kidney disease, unspecified (principal); R80.9 Proteinuria, unspecified; N05.9 Unspecified nephritic syndrome with unspecified morphologic changes; N40.0 Benign prostatic hyperplasia without lower urinary tract symptoms; Z12.5 Encounter for screening for malignant neoplasm of prostate
CPT/HCPCS: 36415; 80053; 82570; 84153; 84156

== ENCOUNTER 2023-12-16 11:26 | Outpatient (AMB) | payer MEDICARE, MEDICAID, SELFPAY ==
[2023-12-16 11:37] VITALS: BP 136/70; PULSE 72; O2SAT 96; BMI 31.3
--- NOTE | 2023-12-16 11:37 | HO.NEPHOV_ITS ---
Vital Signs 12/16/23 11:37 Height 5 ft 5 in Weight 188 lb BMI 31.3 BP 136/70 Blood Pressure Location Lt brachial Position Sitting Pulse 72 Pulse Source Pulse Oximeter Pulse Oximetry (%) 96 Oxygen Delivery Method Room Air Intake Visit Reasons: Anemia/ 2 MO FU/ Conf Store Protection Specialist Required: No Accompanied by: Self / Same As Patient Allergies No Known Allergies Allergy (Verified 12/16/23 11:38) Medication List - Last Reconciled 12/16/23 by Casey Choi MD albuterol sulfate 90 mcg/actuation 2 puffs PO Q6H PRN albuterol sulfate 2.5 mg (3 mL) inhalation Q6H PRN 30 days allopurinol 1 tab PO DAILY amlodipine 5 mg PO DAILY atorvastatin 40 mg PO DAILY azelastine intranasal carvedilol 1 tab PO BID chlorhexidine gluconate 0.12% PO cholecalciferol (vitamin D3) 50 mcg PO DAILY citalopram 20 mg PO DAILY finasteride 5 mg PO DAILY 90 days insulin glargine (Basaglar KwikPen U-100 Insulin) 12 units subcut BEDTIME meclizine 1 tab PO TID metformin 1,000 mg PO BID montelukast 10 mg PO QPM pantoprazole 1 tab PO BID quetiapine 25 - 50 mg PO BEDTIME Symbicort 160-4.5 mcg/actuation (budesonide-formoterol) 2 puffs PO BID NS terazosin 5 mg PO BEDTIME 90 days valsartan-hydrochlorothiazide 320-12.5 mg 1 tab PO DAILY HPI Comments Details: 63-year-old man with a history of diabetes mellitus hypertension referred for proteinuria. He has history of chronic anemia. He was evaluated by Hematology. This was deemed to be due to chronic disease. He is iron levels were low. He has not on any iron supplementation. Today has no new complaints. No headache nausea or vomiting. No shortness of breath no edema Store Protection Specialist service was used 08/20/23 Underwent ABPM 12/16/2023. Overall doing well. Tolerate his medications. Home blood pressure readings are acceptable. No new issues today. [facility] Medical History (Updated 08/13/23 @ 14:08 by Casey Choi MD) Chronic restrictive lung disease RAMONA on CPAP Vertigo Gout Hyperlipemia Hypertension Heart palpitations Diabetes Asthma Anemia Surgical History H/O eye surgery Hx of cholecystectomy H/O knee surgery Family History Father No problems noted. Mother No problems noted. Other No family history of cancer Social History Household Members: Significant Other Housing: Apartment Are you a primary animal care attendant to a significant other at home: No Do you presently have visiting nurse or other home services: Yes Alcohol intake: former Patient Tobacco Use Status: Never used Tobacco Substance Use Type: Crack/Cocaine service: No Current occupational status: disabled Physical Exam Vital Signs: Last Vital Signs Pulse 72 12/16/23 11:37 BP 136/70 12/16/23 11:37 Pulse Ox 96 12/16/23 11:37 Oxygen Delivery Method Room Air 12/16/23 11:37 BMI result Body Mass Index 31.3 Const General: comfortable; No acute distress Orientation/consciousness: patient oriented x3 Eyes General: appearance normal, both eyes and all related structures Visual Smith: normal visual smith by confrontation Neck Neck: Yes supple and Yes no JVD Resp Effort & Inspection: normal respiratory effort and respiratory effort not decreased Auscultation: rhonchi Cardio Palpation: no palpable S3 and no palpable S4 Heart sounds: no rubs GI Inspection: Yes normal to inspection Palpation (GI): Soft to palpation Percussion: Yes normal to percussion Auscultation: normal bowel sounds General: Yes no CVA tenderness Back/Spine/Pelvis Back: no CVA tenderness Skin General skin exam: no petechiae and no purpura Neuro General: patient oriented x3 and no focal motor deficits Extrem General: No clubbing and No edema Results Reviewed Nephrology Results: Hgb 10.2 g/dl (14.0-18.0) L 08/09/23 WBC 5.7 X10*3/uL (4.8-10.8) 08/09/23 Plt Count 153 X10*3/uL (160-400) L 08/09/23 Sodium 136 mmol/L (135-145) 12/05/23 Potassium 3.8 mmol/L (3.3-5.1) 12/05/23 Chloride 101 mmol/L (96-108) 12/05/23 Carbon Dioxide 24 mmol/L (22-29) 12/05/23 BUN 24 mg/dL (9-16) H 12/05/23 Creatinine 1.37 mg/dL (0.5-1.4) 12/05/23 Calcium 9.3 mg/dL (8.4-10.2) 12/05/23 Urine Creatinine 44.72 mg/dL 12/05/23 Assessment & Plan Assessment & Plan (1) Proteinuria: Code(s): R80.9 - Proteinuria, unspecified Category: Medical (2) Anemia: Code(s): D64.9 - Anemia, unspecified Category: Medical (3) Hypertension: Code(s): I10 - Essential (primary) hypertension Category: Medical Plan: Plan Middle-aged man with microalbuminuria in the setting of longstanding diabetes mellitus and hypertension. The urine microalbumin creatinine ratio was 300. He is currently on valsartan for renal protection continue with RAAS blockade. Blood pressure should be maintained less than 130/80 and A1c less than 7%. 24 hour ABPM shows resistant HTN Encouraged him to stay on low-sodium diet Keep Amlodipine 5 mg PO daily and Valsartan HCT 320/12.5 mg daily Renal function stable with a creatinine of 1.37. EGFR is 52 mL/minute this has been relatively in this range since 2020. Orders: Orders Total Protein Urine Random 6 Months I10 - Essential (primary) hypertension Creatinine Urine 6 Months I10 - Essential (primary) hypertension Basic Metabolic Panel 6 Months I10 - Essential (primary) hypertension, R80.9 - Proteinuria, unspecified Coding Level of Care Code Est Pt Level 4 (93480) Diagnoses Proteinuria R80.9 Anemia D64.9 Hypertension I10
== END 2023-12-16 11:48 | disposition home or self-care (01) ==
PROVIDERS: PCP Internal Medicine; Visit Provider Internal Medicine Hypertension Specialist
DX: R80.9 Proteinuria, unspecified (principal); D64.9 Anemia, unspecified; I10 Essential (primary) hypertension
CPT/HCPCS: 99214

== ENCOUNTER → 2023-12-16 11:26 | Outpatient (BNVA) | payer MEDICARE, MEDICAID, SELFPAY | PROVIDERS: PCP Internal Medicine; Visit Provider Internal Medicine Hypertension Specialist | DX: I10 Essential (primary) hypertension (principal); D64.9 Anemia, unspecified; R80.9 Proteinuria, unspecified; E11.9 Type 2 diabetes mellitus without complications | CPT/HCPCS: 99212 ==

== ENCOUNTER 2023-12-18 10:34 | Outpatient (AMB) | payer MEDICARE, MEDICAID, SELFPAY ==
--- NOTE | 2023-12-18 10:54 | MHC.OFFVIS ---
Intake Visit Reasons: 4m/PSA Intake Note: Patient presents today for a follow up on: Elevated PSA, Urgency, PSA lab results PSA: 2.10 Urology Medications: Terazosin, Finasteride Allergies to Antibiotic- No Known Allergies Blood Thinner- None PVR: 25ml's Grinding Wheel Inspector Required: No Accompanied by: Self / Same As Patient Allergies No Known Allergies Allergy (Verified 12/18/23 11:18) Medication List - Last Reconciled 12/18/23 by CHERYL Egan- albuterol sulfate 90 mcg/actuation 2 puffs PO Q6H PRN albuterol sulfate 2.5 mg (3 mL) inhalation Q6H PRN 30 days allopurinol 1 tab PO DAILY amlodipine 5 mg PO DAILY atorvastatin 40 mg PO DAILY azelastine intranasal carvedilol 1 tab PO BID chlorhexidine gluconate 0.12% PO cholecalciferol (vitamin D3) 50 mcg PO DAILY citalopram 20 mg PO DAILY insulin glargine (Basaglar KwikPen U-100 Insulin) 12 units subcut BEDTIME meclizine 1 tab PO TID metformin 1,000 mg PO BID montelukast 10 mg PO QPM pantoprazole 1 tab PO BID quetiapine 25 - 50 mg PO BEDTIME Symbicort 160-4.5 mcg/actuation (budesonide-formoterol) 2 puffs PO BID NS terazosin 5 mg PO BEDTIME 90 days valsartan-hydrochlorothiazide 320-12.5 mg 1 tab PO DAILY HPI Comments Details: Pedro is a very pleasant 63-year-old Setswana-speaking male patient of . He has a past medical history of chronic restrictive lung disease, RAMONA on CPAP, vertigo, gout, hyperlipidemia, hypertension, palpitations, diabetes, asthma, and anemia. He presents to the office today for follow-up. In discussion with the patient today reports to be doing and feeling well. Recent PSA results reviewed with the patient today. PSAs are as follows: 10/12 3.8, 01/12 3.4, 07/13 1.2, 12/13 2.1 Discussed slight increase in PSA. Discussed potential causes slight increase in PSA in the last 4 months. He does report compliance with finasteride and terazosin as prescribed. Previous workup has included a retroperitoneal ultrasound noting right kidney with no hydronephrosis or renal calculi. A 2.6 cm upper pole, 2.1 cm midpole, 1.6 cm lower pole and 1.2 cm upper pole cysts with benign features. There is no indication for followup imaging per radiology report. Left kidney with no hydronephrosis or renal calculi. Multiple renal cysts, largest 1.5 cm upper pole, 2.5 cm upper pole and 1.4 cm midpole with benign features. There is no indication for followup imaging per radiology report. The bladder is well distended. Diffuse irregularity of bladder wall. Bladder wall thickness of 0.4 cm. Bilateral ureteral jets are demonstrated. Pre void bladder volume is approximately 310 mL. Postvoid bladder volume is approximately 15 mL. He currently denies any bothersome urinary issues or concerns. He reports be happy with current voiding parameters on 5 mg of terazosin at bedtime. In office urinalysis results reviewed with the patient today. He otherwise denies urinary urgency, urinary frequency, incontinence, nocturia, hematuria, dysuria, foul smelling urine, changes to urinary stream, flank pain, fever, and or chills. PVR 25 mL. He otherwise offers no other issues or concerns at this time. [facility] Medical History Chronic restrictive lung disease RAMONA on CPAP Vertigo Gout Hyperlipemia Hypertension Heart palpitations Diabetes Asthma Anemia Surgical History H/O eye surgery Hx of cholecystectomy H/O knee surgery Family History Father No problems noted. Mother No problems noted. Other No family history of cancer Social History Household Members: Significant Other Housing: Apartment Are you a primary care center manager to a significant other at home: No Do you presently have visiting nurse or other home services: Yes Alcohol intake: former Patient Tobacco Use Status: Never used Tobacco Substance Use Type: Crack/Cocaine service: No Current occupational status: disabled Review of Systems Const Reports as per HPI Eyes Reports no additional complaints ENT Reports no additional complaints Card Reports as per HPI Resp Reports as per HPI GI Reports no additional complaints Reports as per HPI Musc Reports no additional complaints Neuro Reports no additional complaints Psych Reports no additional complaints Endo Reports as per HPI Perez/Lymph Reports no additional complaints Aller/Immun Reports no additional complaints Physical Exam Const General: cooperative, healthy appearing, comfortable, no acute distress, well developed, alert and awake Orientation/consciousness: patient oriented x3 Limitations: no limitations HEENT Head: Yes normal to inspection, Yes normocephalic and Yes atraumatic Ears: hearing grossly normal bilaterally Eyes General: appearance normal, both eyes and all related structures Neck Neck: Yes normal visual inspection and Yes trachea midline Chest Chest palpation & inspection: normal inspection of the chest Resp Effort & Inspection: normal respiratory effort and able to speak in complete sentences Cardio Rate: regular rate GI Inspection: Yes normal to inspection General: Yes no CVA tenderness Back/Spine/Pelvis Back: no CVA tenderness Skin General skin exam: no rashes or lesions noted Neuro General: patient oriented x3 Extrem General: Yes normal to inspection Psych Appearance: grossly normal and well kempt Mental Status: mental status grossly normal Speech and movement: Normal speech and movement present and Clear speech present Affect: normal affect Attitude: cooperative Thought process: Normal thought process present Thought content: Normal thought content present Insight: Fair insight present (Psych) Judgement: Fair judgement present (Psych) Office Procedures Post Void Residual Post Residual Void Post Void Residual (PVR): 25 [id number] Void Residual by ultrasound Results AMB Urinalysis, Automated UA Leukoctes 0 Martha/uL Last Edit by [employer] on 12/18/23 11:11 UA Nitrite Last Edit by [employer] Lindsay on 12/18/23 11:11 UA Urobilinogen 0.2 mg/dL Last Edit by [employer] on 12/18/23 11:11 UA Protein 15 mg/dL Last Edit by [employer] on 12/18/23 11:11 UA pH 6.5 Last Edit by [employer] on 12/18/23 11:11 UA Blood 0 Chinmay/uL Last Edit by [employer] on 12/18/23 11:11 UA Specific [place] 1.005 Last Edit by [employer] on 12/18/23 11:11 UA Ketone Last Edit by [employer] on 12/18/23 11:11 UA Bilirubin 0 mg/dL Last Edit by Lexii Montoya on 12/18/23 11:11 UA Glucose 0 mg/dL Last Edit by Lexii Montoya on 12/18/23 11:11 Results Reviewed Results Reviewed: Laboratory Last Values Urine pH (Auto) 6.5 12/18/23 10:59 Specific [place] (Auto) 1.005 12/18/23 10:59 Urine Protein (Auto) 15 mg/dL 12/18/23 10:59 Glucose (UA)(Auto) 0 mg/dL 12/18/23 10:59 Urine Blood (Auto) 0 Chinmay/uL 12/18/23 10:59 Urine Bilirubin (Auto) 0 mg/dL 12/18/23 10:59 Urine Urobilinogen (Auto) 0.2 mg/dL 12/18/23 10:59 Leukocyte Esterase (Auto) 0 Martha/uL 12/18/23 10:59 Assessment & Plan Assessment & Plan (1) Urinary frequency: Code(s): R35.0 - Frequency of micturition Category: Medical (2) Urinary urgency: Code(s): R39.15 - Urgency of urination Category: Medical (3) Elevated PSA: Code(s): R97.20 - Elevated prostate specific antigen [PSA] Category: Medical (4) Renal cyst: Code(s): N28.1 - Cyst of kidney, acquired Category: Medical Plan In office urinalysis results reviewed with the patient today; as noted above. Recent PSA results reviewed with the patient today; as noted above. Discussed slight increase in PSA however patient reports running out of refills of finasteride and has not been on medication. Discussed, educated, and stressed the importance of compliance with medications as prescribed. Patient otherwise denies any bothersome urinary issues or concerns. He reports be happy with current voiding parameters. Patient reports significant improvement in urinary urgency and frequency with terazosin 5 mg at bedtime. Discussed surveillance monitoring of PSA Will obtain PSA in 4-6 months. Follow-up in 4-6 months with PSA to be completed prior and PVR at next office visit; or sooner with any issues, concerns, and or questions. Orders: Orders AMB Post Void Residual by ultrasound Today R35.0 - Frequency of micturition AMB Urinalysis Automated Today Z13.9 - Encounter for screening, unspecified Prostate Specific Antigen 4 Months R97.20 - Elevated prostate specific antigen [PSA] Medications: Discontinued finasteride Discontinued Reason: Doctor's Order 5 mg PO DAILY 90 days 90 tabs 1RF N13.8 - Other obstructive and reflux uropathy, N40.1 - Benign prostatic hyperplasia with lower urinary tract symptoms, R33.9 - Retention of urine, unspecified Patient Instructions: The patient had an opportunity to ask questions regarding the treatment plan. All questions were answered. Physical exam, labs, and imaging were discussed and reviewed in detail. As well as risks, benefits, and discussion of treatment choices. No major barriers to understanding were identified. The patient expressed understanding and agreement with the above treatment plan. The patient was made aware they should contact our office by phone for worsening of their current condition, the appearance of new symptoms, or with any questions or concerns. Compliance is encouraged with any medications and follow up testing that is ordered. It is a privilege to be allowed the opportunity to participate in? your urological care.? Again, if you have any questions or concerns If you have any questions or concerns please do not hesitate to contact me. The office is [phone]. This note is constructed using voice recognition software. While every effort has been made to ensure accuracy resource conservationist errors may have been included. Yours sincerely, JOVANI Egan Coding Level of Care Code Est Pt Level 3 (20318) Diagnoses Urinary frequency R35.0 Urinary urgency R39.15 Elevated PSA R97.20 Renal cyst N28.1 CPT Codes Post Residual Void - PVR CPT Code: 99502-Zexo Void Residual by ultrasound ([id number])
== END 2023-12-18 11:23 | disposition home or self-care (01) ==
PROVIDERS: PCP Internal Medicine; Visit Provider Nurse Practitioner Family
DX: R35.0 Frequency of micturition (principal); R39.15 Urgency of urination; R97.20 Elevated prostate specific antigen [PSA]; N28.1 Cyst of kidney, acquired; Z13.9 Encounter for screening, unspecified
CPT/HCPCS: 99213

== ENCOUNTER → 2023-12-18 10:34 | Outpatient (BNVA) | payer MEDICARE, MEDICAID, SELFPAY | PROVIDERS: PCP Internal Medicine; Visit Provider Nurse Practitioner Family | DX: R97.20 Elevated prostate specific antigen [PSA] (principal); R39.15 Urgency of urination; R35.0 Frequency of micturition; N28.1 Cyst of kidney, acquired; N40.1 Benign prostatic hyperplasia with lower urinary tract symptoms; R33.8 Other retention of urine; N13.8 Other obstructive and reflux uropathy | CPT/HCPCS: 51798; 81003; 99212 ==

== ENCOUNTER 2023-12-24 13:01 | Outpatient (AMB) | payer MEDICARE, MEDICAID, SELFPAY ==
--- NOTE | 2023-12-24 13:08 | A.OFFVIS_ITS ---
Vital Signs 12/24/23 13:09 Height 5 ft 5 in Weight 188 lb 11.451 oz BMI 31.4 BP 134/78 Blood Pressure Location Lt brachial Position Sitting Pulse 62 Pulse Source Pulse Oximeter Pulse Oximetry (%) 100 Oxygen Delivery Method Room Air Intake Visit Reasons: Asthma Marriage Counselor Minister Required: No Allergies No Known Allergies Allergy (Verified 12/24/23 13:11) HPI Comments Details: The patient is a 62-year-old woman with a known history of asthma. Apparently back in 2014 after exposure to dust and also mouse droppings the patient had a severe episode of respiratory failure. She was admitted to the ICU briefly. He had significant bronchospasms. During that evaluation she had chest x-rays demonstrating significant peribronchial coughing and also areas of pneumonitis. She did improve after that but never back to her baseline. She continues to use Symbicort once a day in addition to allergy medications. Does have a partially helpful. She is still using her rescue inhaler at least once a day. More recently in the last few weeks she has been waking up in the middle of the night with shortness of breath and she has been using inhaler. She has other exposures. [place] and is exposed to multiple animals and also to hay. She has had allergy testing in the past and did get allergy shots in her 20s. Does did not make any significant difference. She denies any recent use of prednisone for any exacerbations. 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 This very consistent with her asthma history. In addition to that she had blood work including a CBC with eosinophilia. Based on her moderate persistent asthma the patient may be a good candidate for biologic therapy. 07/05/2020 the patient is here for pulmonary follow-up visit. He is responding well to the Symbicort and also the singular. He has not required any prednisone which is reassuring. He is typically using the Symbicort at nighttime. I did encourage him to try to take it in the morning instead because he does have some slight wheezing on examination. Unfortunately he is gaining some weight. He does have type 2 diabetes. And explained to him that this is ultimately going to make his respiratory status worse. Therefore support for him to wash his portions and lose weight. He is going to talk to his primary care doctor about that. In addition to that the patient has been using the CPAP. The CPAP therapy continues to be affecting beneficial. No issues getting supplies from his [employer] company. Sometimes he has some air leakage around the nose, but, he tolerates it very well. Otherwise patient is without any complain ts. The plans for him to have a chest x-ray and also plan to have PFTs next year with his next appointment. 07/06/2021 the patient is here for a pulmonary follow-up visit. Overall the patient has been doing well from a respiratory status. He has not required any prednisone. He has been using Symbicort in addition to Flovent. At this point specially with his diabetes we need to minimize the amount of inhaled steroids. The patient will stop the Flovent at this time and continue with the Symbicort. In addition to that the patient did have pulmonary function studies that I did review with him. It appears that he has no obstructions of the airways although he does have a mild restrictive ventilatory defect. It is likely related to his body habitus. Doubt that he has any interstitial lung conditions. Will have him undergo a chest x-ray when able. The patient continues to use CPAP. CPAP therapy continues to be affecting beneficial. He does use it for more than 4 hours a night. He does get supplies regularly. 02/05/2022 the patient is here for a pulmonary follow-up visit. Overall the patient has been doing well. He has been using his respiratory therapy with good effect. Denies any need for her rescue inhaler or prednisone. He has been having difficulties with his CPAP. He has been very compliant with CPAP using more than 8 hours a night. However, he has been complaining of daytime drowsiness and feels like the pressures are not high enough. Indeed his AHI is elevated to 11.5 from last night. The machine is now older than 5 years old and it is not providing the adequate pressure. The patient has a CPAP that is now broken beyond repair. I will request a new APAP for him at this time. Patient understands that this may take some time with the limited supplies. The patient does have cardiovascular risk factors and is important for him to continue the PAP therapy at this time. 12/24/2023 the patient is here for a pulmonary follow-up visit. Overall the patient has been doing well. He continues uses APAP every night, 100% of the time. He does require high pressures currently APAP settings 14-20 cm. We did download his machine. His compliance is 100%. His AHI is down to 2.5 per hour. AirSense 11. He does use a fullface mask and has been getting supplies readily through his [employer] company, [employer]. Patient also history of asthma. He does have a rescue inhaler and a maintenance inhaler, Symbicort. He also uses singular. Sometimes his inhaler is not sufficient. His last pulmonary function studies demonstrated a mild restrictive ventilatory defect. I have requested him to get a repeat chest x-ray. [facility] Medical History Chronic restrictive lung disease RAMONA on CPAP Vertigo Gout Hyperlipemia Hypertension Heart palpitations Diabetes Asthma Anemia Surgical History H/O eye surgery Hx of cholecystectomy H/O knee surgery Family History Father No problems noted. Mother No problems noted. Other No family history of cancer Social History Household Members: Significant Other Housing: Apartment Are you a primary acute care nursing assistant to a significant other at home: No Do you presently have visiting nurse or other home services: Yes Alcohol intake: former Patient Tobacco Use Status: Never used Tobacco Substance Use Type: Crack/Cocaine service: No Current occupational status: disabled Review of Systems Const Denies daytime sleepiness, Denies night sweats and Reports weight loss ENT Denies change in voice, Denies lip swelling, Denies mouth pain, Reports nasal congestion, Reports nasal discharge and Denies tongue swelling Card Denies chest pain Resp Reports cough GI Denies abdominal pain Musc Denies no additional complaints Neuro Denies Neuro-related abnormal movements Psych Denies no additional complaints Perez/Lymph Denies easy bleeding and Denies lymphadenopathy Aller/Immun Denies lip swelling and Denies tongue swelling Physical Exam Vital Signs: Last Vital Signs Pulse 62 12/24/23 13:09 BP 134/78 12/24/23 13:09 Pulse Ox 100 12/24/23 13:09 Oxygen Delivery Method Room Air 12/24/23 13:09 BMI result Body Mass Index 31.4 Const General: alert Eyes Pupils: Equal, round and reactive pupils present Neck Neck: Yes normal visual inspection, Yes full ROM and Yes no lymphadenopathy Chest Chest palpation & inspection: normal inspection of the chest Resp Effort & Inspection: normal respiratory effort Auscultation: clear to auscultation bilaterally, no crackles and no rales Cardio Rate: regular rate Rhythm: regular rhythm Heart sounds: S1 normal heart sound present and S2 normal heart sound present GI Palpation (GI): Soft to palpation and nontender Auscultation: normal bowel sounds General: Yes no CVA tenderness Back/Spine/Pelvis Back: no CVA tenderness Skin General skin exam: rashes and/or lesions noted Neuro Cranial nerves: Yes Equal, round and reactive pupils present Assessment & Plan Assessment & Plan (1) RAMONA on CPAP: Code(s): G47.33 - Obstructive sleep apnea (adult) (pediatric); Z99.89 - Dependence on other enabling machines and devices Category: Medical (2) Asthma: Code(s): J45.909 - Unspecified asthma, uncomplicated Category: Medical Qualifiers: Asthma complication type: uncomplicated Asthma persistence: persistent Asthma severity: moderate Qualified Code(s): J45.40 - Moderate persistent asthma, uncomplicated (3) Chronic restrictive lung disease: Code(s): J98.4 - Other disorders of lung Category: Medical Plan continue Symbicort Continue Singulair JAMI as needed Needs a nebulizer continue APAP therapy, [employer] Weight management F/U 12 months Coding Level of Care Code Est Pt Level 4 (32233) Diagnoses RAMONA on CPAP G47.33; Z99.89 Moderate persistent asthma without complication J45.40 Asthma complication type: uncomplicated Asthma persistence: persistent Asthma severity: moderate Chronic restrictive lung disease J98.4 Time Spent (min) 16
[2023-12-24 13:09] VITALS: BP 134/78; PULSE 62; O2SAT 100; BMI 31.4
== END 2023-12-24 13:40 | disposition home or self-care (01) ==
PROVIDERS: PCP Internal Medicine; Visit Provider Hospitalist
DX: G47.33 Obstructive sleep apnea (adult) (pediatric) (principal); Z99.89 Dependence on other enabling machines and devices; J45.40 Moderate persistent asthma, uncomplicated; J98.4 Other disorders of lung
CPT/HCPCS: 99214

== ENCOUNTER → 2023-12-24 13:01 | Outpatient (BNVA) | payer MEDICARE, MEDICAID, SELFPAY | PROVIDERS: PCP Internal Medicine; Visit Provider Hospitalist | DX: J45.40 Moderate persistent asthma, uncomplicated (principal); J98.4 Other disorders of lung; G47.33 Obstructive sleep apnea (adult) (pediatric); Z99.89 Dependence on other enabling machines and devices | CPT/HCPCS: 99212 ==

== ENCOUNTER 2024-01-08 10:21 | Outpatient (REF) | payer MEDICARE, MEDICAID, SELFPAY ==
[2024-01-08 14:13] LABS: MANUAL DIFF FLAG NO
[2024-01-08 14:28] LABS: Basophils Absolute Auto 0.1 X10*3/uL (0.0-0.2); Basophils Percent Auto 1.1 % (0-2); Eosinophils Absolute Auto 0.3 X10*3/uL (0.0-0.4); Eosinophils Percent Auto 5.8 % (0-4); Hematocrit 30.3 % (42.0-52.0); Imm Gran Abs Auto 0.01 X10*3/uL (0.00-0.03); Imm Gran Pct Auto 0.2 % (0.0-0.4); Lymphocytes Absolute Auto 1.7 X10*3/uL (1.2-4.9); Lymphocytes Percent Auto 37.3 % (20-40); Mean Corpuscular Hemoglobin 25.4 pg (27.0-33.0); Mean Corpuscular Volume 77.1 fL (80.0-98.0); Mean Platelet Volume 10.8 fL (9.4-12.4); Monocytes Absolute Auto 0.4 X10*3/uL (0.1-1.2); Monocytes Percent Auto 9.1 % (2-11); Neutrophils Absolute Auto 2.1 x10*3/uL (2.0-8.3); Neutrophils Percent Auto 46.5 % (45-73); Platelet Count 245 X10*3/uL (160-400); Red Blood Count 3.93 X10*6/uL (4.60-5.80); Red Cell Distribution Width 12.9 % (11.0-16.0); White Blood Count 4.5 X10*3/uL (4.8-10.8)
[2024-01-08 15:02] LABS: Ferritin 109 ng/mL (20-250)
[2024-01-08 15:06] LABS: Anion Gap 11 (12-20)
[2024-01-08 15:11] LABS: Alanine Aminotransferase 26 U/L (0-40); Albumin Level 4.2 g/dL (3.5-5.0); Alkaline Phosphatase 50 U/L (39-117); Aspartate Amino Transferase 29 U/L (5-37); Bilirubin Total 0.7 mg/dL (0.0-1.0); Blood Urea Nitrogen 18 mg/dL (9-16); Calcium 9.9 mg/dL (8.4-10.2); Carbon Dioxide 29 mmol/L (22-29); Chloride 91 mmol/L (96-108); Estimated Glomerular Filt Rate 58; Glucose Random 142 mg/dL (60-115); Potassium 4.6 mmol/L (3.3-5.1); Sodium 126 mmol/L (135-145); Total Protein 7.4 g/dL (6.5-8.0)
== END 2024-01-08 10:22 | disposition home or self-care (01) ==
LOC: HO.WFDLDS 10:21
PROVIDERS: Visit Provider Internal Medicine Medical Oncology
DX: D64.9 Anemia, unspecified (principal)
CPT/HCPCS: 36415; 80053; 82728; 85025

== ENCOUNTER 2024-11-12 08:15 | Outpatient (REF) | payer MEDICARE, MEDICAID, SELFPAY ==
--- OUTSIDE RECORDS SUMMARY | 2024-11-12 08:27 | XMS_ITS | Clinical Summary ---
Author Organization [employer] Address [address] [facility] [address] [place] [address] Care Team Providers Care Cyber [employer] Planner Name Role Phone Unavailable Primary Care Provider Unavailabl e Social History Tobacco Use Types Packs/Day Years Used Date Smoking Tobacco: Never Assessed Sex and Gender Information Value Date Recorded Sex Assigned at Male 01/31/2023 1:15 PM EDT Legal Sex Male 1:14 PM EDT Gender Identity Male 01/31/2023 1:15 PM EDT Sexual Orientation Don't know 01/31/2023 1: 15 PM EDT Plan of Treatment Health Maintenance Due Date Last Done Comments CT Colonography 1960 Colonoscopy 1960 Colorectal Cancer Screening 1960 Depression Screening 1960 FIT DNA/Cologuard 1960 FIT 1960 FOBT 1960 HIV Screening 1960 Lipid Panel 1960 SDOH Screening 1960 Sigmoidoscopy 1960 Disability Screening 1960 Alcohol/Substance Use Screening 1972 Tobacco Screening 1972 Hepatitis C Screening 1978 DTaP/Tdap/Td Vaccines (1 - Tdap) 08/13/1979 Zoster Vaccines (2 of 2) 01/15/2023 11/20/2022 COVID-19 Vaccine ( season) 2023 05/01/2022, 04/04/2021, 09/01/2020, Additional history exists Influenza Vaccine (#1) 2024 3, 04/27/2021, 12/25/2019, Additional history exists RSV Patients and Patients Aged 60 years or older (1 - 1-dose 75+ series) 08/13/2035 Pneumococcal Vaccine: 50+ Years Completed 11/20/2022 HIB Vaccines Aged Out No longer eligi ble based on patient's age to complete this topic HPV Vaccines Aged Out No longer eligi ble based on patient's age to complete this topic Hepatitis A Vaccines Aged Out No long er eligible based on patient's age to complete this topic Hepatitis B Vaccines Aged Out No long er eligible based on patient's age to complete this topic IPV Vaccines Aged Out No longer eligi ble based on patient's age to complete this topic Meningococcal B Vaccine Aged Out No l onger eligible based on patient's age to complete this topic Meningococcal Vaccine Aged Out No sami diana eligible based on patient's age to complete this topic RSV under 20 months Aged Out No longe r eligible based on patient's age to complete this topic Rotavirus Vaccines Aged Out No longer eligible based on patient's age to complete this topic Insurance [facility] [employer] MEDICARE
[2024-11-12 11:44] LABS: Anion Gap 9 (12-20); Blood Urea Nitrogen 17 mg/dL (9-16); Calcium 8.9 mg/dL (8.4-10.2); Carbon Dioxide 28 mmol/L (22-29); Chloride 101 mmol/L (96-108); Estimated Glomerular Filt Rate 57; Potassium 4.2 mmol/L (3.3-5.1); Sodium 134 mmol/L (135-145)
[2024-11-12 11:59] LABS: Total Protein Urine Random 39 mg/dL (<12)
[2024-11-12 12:05] LABS: Prostate Specific Antigen 2.59 ng/mL (<0.05-4.0)
== END 2024-11-12 08:16 | disposition home or self-care (01) ==
LOC: HO.WFDLDS 08:15
PROVIDERS: Referring Provider Nurse Practitioner Family; Visit Provider Internal Medicine Hypertension Specialist
DX: I10 Essential (primary) hypertension (principal); R80.9 Proteinuria, unspecified; R97.20 Elevated prostate specific antigen [PSA]
CPT/HCPCS: 36415; 80048; 82570; 84153; 84156

== ENCOUNTER 2024-11-23 11:59 | Outpatient (AMB) | payer MEDICARE, MEDICAID, SELFPAY ==
--- NOTE | 2024-11-23 12:00 | A.OFFVIS_ITS ---
Intake Visit Reasons: follow up/PSA Intake Note: Patient is present for PSA F/U Urology Medication:TERAZOSIN,FINASTERIDE Antibiotic Allergy:NONE Blood Thinner:NONE Grade And Center Marker Required: Yes Allergies No Known Allergies Allergy (Verified 11/23/24 13:14) Medication List - Last Reconciled 11/23/24 by CHERYL Egan- albuterol sulfate 90 mcg/actuation 2 puffs PO Q6H PRN albuterol sulfate 2.5 mg (3 mL) inhalation Q6H PRN 30 days allopurinol 1 tab PO DAILY amlodipine 5 mg PO DAILY atorvastatin 40 mg PO DAILY azelastine 137 mcg intranasal DAILY carvedilol 1 tab PO BID chlorhexidine gluconate 0.12% 0.12 appl PO DAILY cholecalciferol (vitamin D3) 50 mcg PO DAILY citalopram 20 mg PO DAILY finasteride 5 mg PO DAILY insulin glargine (Basaglar KwikPen U-100 Insulin) 12 units subcut BEDTIME meclizine 1 tab PO TID metformin 1,000 mg PO BID montelukast 10 mg PO QPM nebulizers As directed pantoprazole 1 tab PO BID quetiapine 25 - 50 mg PO BEDTIME Symbicort 160-4.5 mcg/actuation (budesonide-formoterol) 2 puffs PO BID NS terazosin 5 mg PO BEDTIME 30 days valsartan-hydrochlorothiazide 320-12.5 mg 1 tab PO DAILY HPI Comments Details: Pedro is a very pleasant 64-year-old Nepalese-speaking male patient of . He has a past medical history of chronic restrictive lung disease, RAMONA on CPAP, vertigo, gout, hyperlipidemia, hypertension, palpitations, diabetes, asthma, and anemia. He is being followed up on today via telehealth. In discussion with the patient today reports to be doing and feeling well. Recent PSA results reviewed with the patient today. PSAs are as follows: 10/12 3.8, 01/12 3.4, 07/13 1.2, 12/13 2.1, 11/13 2.6 We discussed labile PSA. We discussed slight increase in PSA over the last 11 months. When asked he does report noting episodes of urinary frequency after consumption of valsartan/hydrochlorothiazide. We did discuss diuretics in relation to increase urinary frequency. When asked he reports compliance with finasteride and terazosin as prescribed. Previous workup has included a retroperitoneal ultrasound 02/11 noting right kidney with no hydronephrosis or renal calculi. A 2.6 cm upper pole, 2.1 cm midpole, 1.6 cm lower pole and 1.2 cm upper pole cysts with benign features. There is no indication for followup imaging per radiology report. Left kidney with no hydronephrosis or renal calculi. Multiple renal cysts, largest 1.5 cm upper pole, 2.5 cm upper pole and 1.4 cm midpole with benign features. There is no indication for followup imaging per radiology report. The bladder is well distended. Diffuse irregularity of bladder wall. Bladder wall thickness of 0.4 cm. Bilateral ureteral jets are demonstrated. Pre void bladder volume is approximately 310 mL. Postvoid bladder volume is approximately 15 mL. Prostate volume 26 mL. He currently denies any bothersome urinary issues or concerns. He reports be happy with current voiding parameters on 5 mg of terazosin at bedtime. We did discussed importance of following up as planned. During last office visit in November 2023 recommendations were made for a 4 to six-month follow-up. He denies urinary urgency, incontinence, nocturia, hematuria, dysuria, foul smelling urine, changes to urinary stream, flank pain, fever, and or chills. He otherwise offers no other issues or concerns at this time. [facility] Medical History Chronic restrictive lung disease RAMONA on CPAP Vertigo Gout Hyperlipemia Hypertension Heart palpitations Diabetes Asthma Anemia Surgical History H/O eye surgery Hx of cholecystectomy H/O knee surgery Family History Father No problems noted. Mother No problems noted. Other No family history of cancer Social History Household Members: Significant Other Housing: Apartment Are you a primary home care companion to a significant other at home: No Do you presently have visiting nurse or other home services: Yes Alcohol intake: former Patient Tobacco Use Status: Never used Tobacco Substance Use Type: Crack/Cocaine service: No Current occupational status: disabled Review of Systems Const Reports as per HPI Eyes Reports no additional complaints ENT Reports no additional complaints Card Reports as per HPI Resp Reports as per HPI GI Reports no additional complaints Reports as per HPI Musc Reports no additional complaints Neuro Reports no additional complaints Psych Reports no additional complaints Endo Reports as per HPI Perez/Lymph Reports no additional complaints Aller/Immun Reports no additional complaints Physical Exam Const General: cooperative Orientation/consciousness: patient oriented x3 Resp Effort & Inspection: able to speak in complete sentences Neuro General: patient oriented x3 Psych Speech and movement: Clear speech present Attitude: cooperative Thought content: Normal thought content present Insight: Fair insight present (Psych) Judgement: Fair judgement present (Psych) Telehealth Telehealth Telehealth Platform: xzoops Location of provider rendering services: practice address Location of patient: address on file Patient Identification confirmed using: Name, : Yes Telehealth method: voice only Patient verbally consented to treatment: Yes Patient verbally consented to billing insurance company: Yes Patient informed of any privacy concerns related to visit: Yes Minutes spent on Phone/Video with Pt.: 15 Assessment & Plan Assessment & Plan (1) Elevated PSA: Code(s): R97.20 - Elevated prostate specific antigen [PSA] Category: Medical (2) Urinary frequency: Code(s): R35.0 - Frequency of micturition Category: Medical Plan Recent PSA results reviewed with the patient today; as noted above. Will continue terazosin and finasteride as prescribed. He currently denies any bothersome urinary issues or concerns. He reports be happy with current voiding parameters. Will continue with surveillance monitoring at this time We did discussed correlation of diuretic and urinary frequency Will obtain PSA in 4- 6 months. We discussed the importance of following up as planned. We did discuss labile/increase in PSA as well as further treatment options and risks and benefits of these treatment options Follow-up in 4-6 months with PSA and PVR; or sooner with any issues, concerns, and or questions. Orders: Orders Prostate Specific Antigen 4 Months R35.0 - Frequency of micturition, R97.20 - Elevated prostate specific antigen [PSA] Patient Instructions: The patient had an opportunity to ask questions regarding the treatment plan. All questions were answered. Physical exam, labs, and imaging were discussed and reviewed in detail. As well as risks, benefits, and discussion of treatment choices. No major barriers to understanding were identified. The patient expressed understanding and agreement with the above treatment plan. The patient was made aware they should contact our office by phone for worsening of their current condition, the appearance of new symptoms, or with any questions or concerns. Compliance is encouraged with any medications and follow up testing that is ordered. It is a privilege to be allowed the opportunity to participate in? your urological care.? Again, if you have any questions or concerns If you have any questions or concerns please do not hesitate to contact me. The office is [phone]. This note is constructed using voice recognition software. While every effort has been made to ensure accuracy coiler operator errors may have been included. Yours sincerely, JOVANI Egan Coding Level of Care Code Tele Est Pt Level 3 (15848) Complex EM visit Add On G2211 Diagnoses Elevated PSA R97.20 Urinary frequency R35.0
--- OUTSIDE RECORDS SUMMARY | 2024-11-23 12:42 | XMS_ITS | Clinical Summary ---
Author Organization [employer] Address [address] [place] [address] Care Team Providers Care Building Construction Supervisor Name Role Phone Unavailable Primary Care Provider [...] patient's age to complete this topic Insurance [facility] STANDARD MEDICARE
== END 2024-11-23 12:25 | disposition home or self-care (01) ==
LOC: HO.HUSH 11:59
PROVIDERS: PCP Internal Medicine; Visit Provider Nurse Practitioner Family
DX: R97.20 Elevated prostate specific antigen [PSA] (principal); R35.0 Frequency of micturition
CPT/HCPCS: 99213; G2211

== ENCOUNTER 2024-11-24 11:53 | Outpatient (AMB) | payer MEDICARE, MEDICAID, SELFPAY ==
--- NOTE | 2024-11-24 11:57 | HO.NEPHOV ---
Vital Signs 11/24/24 11:58 Height 5 ft 5 in Weight 176 lb BMI 29.3 BP 162/74 H Blood Pressure Location Rt brachial Position Sitting Pulse 78 Pulse Source Pulse Oximeter Pulse Oximetry (%) 99 Oxygen Delivery Method Room Air Intake Visit Reasons: F/U LVM Assemblies And Installations Inspector Required: Yes Accompanied by: Self / Same As Patient Allergies No Known Allergies Allergy (Verified 11/24/24 11:59) Medication List - Last Reconciled 11/24/24 by Casey Choi MD albuterol sulfate 90 mcg/actuation 2 puffs PO Q6H PRN albuterol sulfate 2.5 mg (3 mL) inhalation Q6H PRN 30 days allopurinol 1 tab PO DAILY amlodipine 5 mg PO DAILY atorvastatin 40 mg PO DAILY azelastine 137 mcg intranasal DAILY carvedilol 1 tab PO BID chlorhexidine gluconate 0.12% 0.12 appl PO DAILY cholecalciferol (vitamin D3) 50 mcg PO DAILY citalopram 20 mg PO DAILY finasteride 5 mg PO DAILY insulin glargine (Basaglar KwikPen U-100 Insulin) 12 units subcut BEDTIME ketorolac 0.5% drps ophthalmic (eye) meclizine 1 tab PO TID metformin 1,000 mg PO BID montelukast 10 mg PO QPM nebulizers As directed pantoprazole 1 tab PO BID quetiapine 25 - 50 mg PO BEDTIME Symbicort 160-4.5 mcg/actuation (budesonide-formoterol) 2 puffs PO BID NS terazosin 5 mg PO BEDTIME 30 days valsartan-hydrochlorothiazide 320-12.5 mg 1 tab PO DAILY HPI Comments Details: 63-year-old man with a history of diabetes mellitus hypertension referred for proteinuria. He has history of chronic anemia. He was evaluated by Hematology. This was deemed to be due to chronic disease. He is iron levels were low. He has not on any iron supplementation. Today has no new complaints. No headache nausea or vomiting. No shortness of breath no edema Assemblies And Installations Inspector service was used 08/20/23 Underwent ABPM 12/16/2023. Overall doing well. Tolerate his medications. Home blood pressure readings are acceptable. No new issues today. [facility] Medical History Chronic restrictive lung disease RAMONA on CPAP Vertigo Gout Hyperlipemia Hypertension Heart palpitations Diabetes Asthma Anemia Surgical History H/O eye surgery Hx of cholecystectomy H/O knee surgery Family History Father No problems noted. Mother No problems noted. Other No family history of cancer Social History Household Members: Significant Other Housing: Apartment Are you a primary technical healthcare consultant to a significant other at home: No Do you presently have visiting nurse or other home services: Yes Alcohol intake: former Patient Tobacco Use Status: Never used Tobacco Substance Use Type: Crack/Cocaine service: No Current occupational status: disabled Physical Exam Vital Signs: Last Vital Signs Pulse 78 11/24/24 11:58 BP 162/74 H 11/24/24 11:58 Pulse Ox 99 11/24/24 11:58 Oxygen Delivery Method Room Air 11/24/24 11:58 BMI result Body Mass Index 29.3 Results Reviewed Nephrology Results: Hgb, (14.0-18.0) 10.0 g/dl L 01/08/24 WBC, (4.8-10.8) 4.5 X10*3/uL L 01/08/24 Plt Count, (160-400) 245 X10*3/uL Δ 01/08/24 Sodium, (135-145) 134 mmol/L L 11/12/24 Potassium, (3.3-5.1) 4.2 mmol/L 11/12/24 Chloride, (96-108) 101 mmol/L 11/12/24 Carbon Dioxide, (22-29) 28 mmol/L 11/12/24 BUN, (9-16) 17 mg/dL H 11/12/24 Creatinine, (0.5-1.4) 1.28 mg/dL 11/12/24 Calcium, (8.4-10.2) 8.9 mg/dL Δ 11/12/24 Urine Creatinine 82.79 mg/dL 11/12/24 Assessment & Plan Assessment & Plan (1) Proteinuria: Code(s): R80.9 - Proteinuria, unspecified Category: Medical (2) Anemia: Code(s): D64.9 - Anemia, unspecified Category: Medical (3) Hypertension: Code(s): I10 - Essential (primary) hypertension Category: Medical Plan: Plan Middle-aged man with microalbuminuria in the setting of longstanding diabetes mellitus and hypertension. The urine microalbumin creatinine ratio was 300. He is currently on valsartan for renal protection continue with RAAS blockade. Blood pressure should be maintained less than 130/80 and A1c less than 7%. 24 hour ABPM shows resistant HTN Encouraged him to stay on low-sodium diet Renal function stable with a creatinine of 1.37. EGFR is 52 mL/minute this has been relatively in this range since 2020. 11/24/24: Increase Amlodipine to 10 mg daily Orders: Orders Basic Metabolic Panel 2 Months I10 - Essential (primary) hypertension, R80.9 - Proteinuria, unspecified Complete Blood Count no Diff 2 Months I10 - Essential (primary) hypertension, R80.9 - Proteinuria, unspecified Medications: Changed From amlodipine 5 mg PO DAILY 90 tabs 1RF To amlodipine 10 mg PO DAILY 90 tabs 1RF Refilled amlodipine 10 mg PO DAILY 90 tabs 1RF Coding Level of Care Code Est Pt Level 4 (17673) Diagnoses Proteinuria R80.9 Anemia D64.9 Hypertension I10
[2024-11-24 11:58] VITALS: BP 162/74; PULSE 78; O2SAT 99; BMI 29.3
--- OUTSIDE RECORDS SUMMARY | 2024-11-24 12:43 | XMS_ITS | Clinical Summary ---
Author Organization [employer] Address [address] [place] [address] Care Team Providers Care Construction Plumber Name Role Phone Unavailable Primary Care Provider [...] patient's age to complete this topic Insurance [facility] STANDARD MEDICARE
== END 2024-11-24 12:08 | disposition home or self-care (01) ==
LOC: HO.HKA 11:54
PROVIDERS: PCP Internal Medicine; Visit Provider Internal Medicine Hypertension Specialist
DX: R80.9 Proteinuria, unspecified (principal); D64.9 Anemia, unspecified; I10 Essential (primary) hypertension
CPT/HCPCS: 99214

== ENCOUNTER → 2024-11-24 11:53 | Outpatient (BNVA) | payer MEDICARE, MEDICAID, SELFPAY | PROVIDERS: PCP Internal Medicine; Visit Provider Internal Medicine Hypertension Specialist | DX: I10 Essential (primary) hypertension (principal); R80.9 Proteinuria, unspecified; D64.9 Anemia, unspecified | CPT/HCPCS: 99212 ==

== ENCOUNTER 2024-12-25 10:14 | Outpatient (REF) | payer MEDICARE, MEDICAID, SELFPAY ==
--- NOTE | ~2024-12-25 | XR_ITS ---
EXAMINATION: XR CHEST 2 VIEWS HISTORY: J45.40 - Moderate persistent asthma, uncomplicated COMPARISON: Comparison is made with the prior examination dated 11/28/2022. FINDINGS: PA and lateral views of the chest are submitted. The lungs are expanded and clear. There is no pleural effusion, pneumothorax, or pulmonary vascular congestion. The heart is normal in size. The bones are intact. XR/XR chest 2V IMPRESSION: No acute cardiopulmonary abnormality. Electronically signed by: Jovi Edge MD 12/25/2024 11:43 AM EDT
--- NOTE | 2024-12-25 11:06 | ECG_ITS ---
Test Reason : COPD Blood Pressure : */* mmHG Vent. Rate : 67 BPM Atrial Rate : 67 BPM P-R Int : 188 ms QRS Dur : 90 ms QT Int : 392 ms P-R-T Axes : 46 27 49 degrees QTcB Int : 414 ms Normal sinus rhythm Minimal voltage criteria for LVH, may be normal variant ( Sokolow-Warner ) Borderline ECG No previous ECGs available Referred By: Zack Powell Electronically Signed By: Josh Bates
== END 2024-12-25 10:15 | disposition home or self-care (01) ==
LOC: HO.XRAY 10:14
PROVIDERS: PCP Internal Medicine; Visit Provider Hospitalist
DX: G47.33 Obstructive sleep apnea (adult) (pediatric) (principal); J44.9 Chronic obstructive pulmonary disease, unspecified; J45.40 Moderate persistent asthma, uncomplicated; J98.4 Other disorders of lung; I49.1 Atrial premature depolarization; Z99.89 Dependence on other enabling machines and devices
CPT/HCPCS: 71046; 93005; 99212

== ENCOUNTER 2024-12-25 10:14 | Outpatient (AMB) | payer MEDICARE, MEDICAID, SELFPAY ==
--- NOTE | 2024-12-25 10:24 | A.OFFVIS_ITS ---
Vital Signs 12/25/24 10:25 Height 5 ft 5 in Weight 177 lb 7.554 oz BMI 29.5 BP 140/60 H Blood Pressure Location Lt brachial Position Sitting Pulse 78 Pulse Source Pulse Oximeter Pulse Oximetry (%) 99 Oxygen Delivery Method Room Air Intake Visit Reasons: Asthma Allergies No Known Allergies Allergy (Verified 12/25/24 10:28) HPI Comments Details: The patient is a 64-year-old woman with a known history of asthma. Apparently back in 2014 after exposure to dust and also mouse droppings the patient had a severe episode of respiratory failure. She was admitted to the ICU briefly. He had significant bronchospasms. During that evaluation she had chest x-rays demonstrating significant peribronchial coughing and also areas of pneumonitis. She did improve after that but never back to her baseline. She continues to use Symbicort once a day in addition to allergy medications. Does have a partially helpful. She is still using her rescue inhaler at least once a day. More recently in the last few weeks she has been waking up in the middle of the night with shortness of breath and she has been using inhaler. She has other exposures. [place] and is exposed to multiple animals and also to hay. She has had allergy testing in the past and did get allergy shots in her 20s. Does did not make any significant difference. She denies any recent use of prednisone for any exacerbations. 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 This very consistent with her asthma history. In addition to that she had blood work including a CBC with eosinophilia. Based on her moderate persistent asthma the patient may be a good candidate for biologic therapy. 07/05/2020 the patient is here for pulmonary follow-up visit. He is responding well to the Symbicort and also the singular. He has not required any prednisone which is reassuring. He is typically using the Symbicort at nighttime. I did encourage him to try to take it in the morning instead because he does have some slight wheezing on examination. Unfortunately he is gaining some weight. He does have type 2 diabetes. And explained to him that this is ultimately going to make his respiratory status worse. Therefore support for him to wash his portions and lose weight. He is going to talk to his primary care doctor about that. In addition to that the patient has been using the CPAP. The CPAP therapy continues to be affecting beneficial. No issues getting supplies from his [employer] company. Sometimes he has some air leakage around the nose, but, he tolerates it very well. Otherwise patient is without any complaints. The plans for him to have a chest x-ray and also plan to have PFTs next year with his next appointment. 07/06/2021 the patient is here for a pulmonary follow-up visit. Overall the patient has been doing well from a respiratory status. He has not required any prednisone. He has been using Symbicort in addition to Flovent. At this point specially with his diabetes we need to minimize the amount of inhaled steroids. The patient will stop the Flovent at this time and continue with the Symbicort. In addition to that the patient did have pulmonary function studies that I did review with him. It appears that he has no obstructions of the airways although he does have a mild restrictive ventilatory defect. It is likely related to his body habitus. Doubt that he has any interstitial lung conditions. Will have him undergo a chest x-ray when able. The patient continues to use CPAP. CPAP therapy continues to be affecting beneficial. He does use it for more than 4 hours a night. He does get supplies regularly. 02/05/2022 the patient is here for a pulmonary follow-up visit. Overall the patient has been doing well. He has been using his respiratory therapy with good effect. Denies any need for her rescue inhaler or prednisone. He has been having difficulties with his CPAP. He has been very compliant with CPAP using more than 8 hours a night. However, he has been complaining of daytime drowsiness and feels like the pressures are not high enough. Indeed his AHI is elevated to 11.5 from last night. The machine is now older than 5 years old and it is not providing the adequate pressure. The patient has a CPAP that is now broken beyond repair. I will request a new APAP for him at this time. Patient understands that this may take some time with the limited supplies. The patient does have cardiovascular risk factors and is important for him to continue the PAP therapy at this time. 12/24/2023 the patient is here for a pulmonary follow-up visit. Overall the patient has been doing well. He continues uses APAP every night, 100% of the time. He does require high pressures currently APAP settings 14-20 cm. We did download his machine. His compliance is 100%. His AHI is down to 2.5 per hour. AirSense 11. He does use a fullface mask and has been getting supplies readily through his DME company, [employer]. Patient also history of asthma. He does have a rescue inhaler and a maintenance inhaler, Symbicort. He also uses singular. Sometimes his inhaler is not sufficient. His last pulmonary function studies demonstrated a mild restrictive ventilatory defect. I have requested him to get a repeat chest x-ray. 12/25/2024 the patient is here for pulmonary follow-up visit. Overall the patient has been doing better. He continues uses CPAP every night. CPAP therapy has been affecting beneficial. The download data demonstrates that his AHI is down to 2 in his uses his greater than 90%. The patient has been very adherent to the therapy although he feels like he is mask is uncomfortable. He does have a fullface mask F20. He is interested in trying the F40 that appears to be more comfortable. That is a good option. I will request that from his DME company. From the asthma standpoint the patient continues uses respiratory inhalers as prescribed. No issues with that. We did review his last x-ray demonstrating blunting of the recess. Will go ahead and repeat his x-ray at this time since it has been couple years. In addition to that based on his cardiac exam does appear to have some ectopy so will have him get an EKG. If the EKGs abnormal I will let him know. Otherwise patient will follow-up with us in a year if he has any issues prior to that he will call for further recommendations. [facility] Medical History Chronic restrictive lung disease RAMONA on CPAP Vertigo Gout Hyperlipemia Hypertension Heart palpitations Diabetes Asthma Anemia Surgical History H/O eye surgery Hx of cholecystectomy H/O knee surgery Family History Father No problems noted. Mother No problems noted. Other No family history of cancer Social History Household Members: Significant Other Housing: Apartment Are you a primary animal care supervisor to a significant other at home: No Do you presently have visiting nurse or other home services: Yes Alcohol intake: former Patient Tobacco Use Status: Never used Tobacco Substance Use Type: Crack/Cocaine service: No Current occupational status: disabled Review of Systems Const Denies daytime sleepiness, Denies night sweats and Reports weight loss ENT Denies change in voice, Denies lip swelling, Denies mouth pain, Reports nasal congestion, Reports nasal discharge and Denies tongue swelling Card Denies chest pain Resp Reports cough GI Denies abdominal pain Musc Denies no additional complaints Neuro Denies Neuro-related abnormal movements Psych Denies no additional complaints Perez/Lymph Denies easy bleeding and Denies lymphadenopathy Aller/Immun Denies lip swelling and Denies tongue swelling Physical Exam Vital Signs: Last Vital Signs Pulse 78 12/25/24 10:25 BP 140/60 H 12/25/24 10:25 Pulse Ox 99 12/25/24 10:25 Oxygen Delivery Method Room Air 12/25/24 10:25 BMI result Body Mass Index 29.5 Const General: alert Eyes Pupils: Equal, round and reactive pupils present Neck Neck: Yes normal visual inspection, Yes full ROM and Yes no lymphadenopathy Chest Chest palpation & inspection: normal inspection of the chest Resp Effort & Inspection: normal respiratory effort Auscultation: clear to auscultation bilaterally, no crackles and no rales Cardio Rate: regular rate Rhythm: abnormal rhythm with ectopic beats Heart sounds: S1 normal heart sound present and S2 normal heart sound present GI Palpation (GI): Soft to palpation and nontender Auscultation: normal bowel sounds General: Yes no CVA tenderness Back/Spine/Pelvis Back: no CVA tenderness Skin General skin exam: rashes and/or lesions noted Neuro Cranial nerves: Yes Equal, round and reactive pupils present Assessment & Plan Assessment & Plan (1) RAMONA on CPAP: Code(s): G47.33 - Obstructive sleep apnea (adult) (pediatric); Z99.89 - Dependence on other enabling machines and devices Category: Medical (2) Asthma: Code(s): J45.909 - Unspecified asthma, uncomplicated Category: Medical Qualifiers: Asthma complication type: uncomplicated Asthma persistence: persistent Asthma severity: moderate Qualified Code(s): J45.40 - Moderate persistent asthma, uncomplicated (3) Chronic restrictive lung disease: Code(s): J98.4 - Other disorders of lung Category: Medical (4) Atrial ectopy: Comment: based on exam Code(s): I49.1 - Atrial premature depolarization Category: Medical Plan continue Symbicort Continue Singulair JAMI as needed Needs a nebulizer continue APAP therapy, [employer] Weight management EKG and CXR F/U 12 months Orders: Orders ECG 12 lead EKG 12/25/24 J44.9 - Chronic obstructive pulmonary disease, unspecified XR chest 2V 12/25/24 J45.40 - Moderate persistent asthma, uncomplicated, J98.4 - Other disorders of lung Coding Level of Care Code Est Pt Level 4 (42514) Diagnoses RAMONA on CPAP G47.33; Z99.89 Moderate persistent asthma without complication J45.40 Asthma complication type: uncomplicated Asthma persistence: persistent Asthma severity: moderate Chronic restrictive lung disease J98.4 Atrial ectopy I49.1 Time Spent (min) 16
[2024-12-25 10:25] VITALS: BP 140/60; PULSE 78; O2SAT 99; BMI 29.5
--- OUTSIDE RECORDS SUMMARY | 2024-12-25 11:17 | XMS_ITS | Clinical Summary ---
Author Organization [employer] Address [address] [place] [address] Care Team Providers Care Automatic Pattern Edger Name Role Phone Unavailable Primary Care Provider [...] patient's age to complete this topic Insurance [facility] STANDARD MEDICARE
== END 2024-12-25 10:54 | disposition home or self-care (01) ==
LOC: HO.HPS 10:15
PROVIDERS: PCP Internal Medicine; Visit Provider Hospitalist
DX: G47.33 Obstructive sleep apnea (adult) (pediatric) (principal); Z99.89 Dependence on other enabling machines and devices; J45.40 Moderate persistent asthma, uncomplicated; J98.4 Other disorders of lung; I49.1 Atrial premature depolarization
CPT/HCPCS: 99214

== ENCOUNTER → 2024-12-25 11:06 | Outpatient (BNV) | payer MEDICARE, MEDICAID, SELFPAY | PROVIDERS: PCP Internal Medicine; Visit Provider Internal Medicine Cardiovascular Disease | DX: J44.9 Chronic obstructive pulmonary disease, unspecified (principal) | CPT/HCPCS: 93010 ==

== ENCOUNTER → 2024-12-25 11:19 | Outpatient (BNV) | payer MEDICARE, MEDICAID, SELFPAY | PROVIDERS: PCP Internal Medicine; Visit Provider Radiology Diagnostic Radiology | DX: J45.40 Moderate persistent asthma, uncomplicated (principal) | CPT/HCPCS: 71046 ==

== ENCOUNTER 2025-01-21 08:44 | Day surgery (SDC) | payer MEDICARE, MEDICAID, SELFPAY ==
--- OUTSIDE RECORDS SUMMARY | 2025-01-06 12:04 | XMS_ITS | Clinical Summary ---
Author Organization [employer] Address [address] [facility] [address] [place] [address] Care Team Providers Care Php Programmer Name Role Phone Unavailable Primary Care Provider [...] of 2) 01/15/2023 11/20/2022 COVID-19 Vaccine ( - season) 2024 05/01/2022, 04/04/2021, 09/01/2020, Additional history exists Influenza [...] patient's age to complete this topic Insurance [facility] STANDARD MEDICARE
[2025-01-21] VITALS (13 sets, daily range): BP systolic 116–165; BP diastolic 72–91; PULSE 69–84; RESP 13–20; TEMP 36.4–36.9; O2SAT 95–100; BMI 29.5
--- NOTE | ~2025-01-21 | CT_ITS ---
EXAMINATION: CT-guided bone marrow aspiration-biopsy. CLINICAL INDICATION: Significant anemia comparison: None. TECHNIQUE: Following explaining CT fluoroscopy guided bone marrow aspiration/biopsy procedure, benefits and risk, a written consent was obtained. Patient was placed prone on CT table and preliminary CT imaging was obtained through the pelvis. An optimal site was selected on axial scan along the left posterior iliac crest and markers placed. Repeat imaging was obtained with the markers and an optimal marker was selected and marked on the skin. The marked site was cleaned and draped in usual sterile manner. 1% lidocaine was injected puncture site. Through a small skin incision a 16-gauge guide needle was advanced from the skin into the posterior iliac crest bone marrow beyond the cortical margin. The guide needle was removed and syringes attached and 50 mL of blood was aspirated and deposited in multiple vacuum tubes. Subsequently coaxially a biopsy guiding needle was introduced with a drill and a single core biopsy was obtained. The core was placed uneventfully gauze and sent to lab. Postprocedure the guide needle was withdrawn and complete hemostasis achieved at puncture site. Simple dressing applied at the puncture site. Patient tolerated procedure extremely well. Conscious sedation was utilized during exam. FINDINGS/
[2025-01-21 09:00] LABS: Glucose, Whole Blood 87 mg/dL (60-115)
[2025-01-21 09:16] LABS: MANUAL DIFF FLAG NO
[2025-01-21 09:20] LABS: Hematocrit 29.8 % (42.0-52.0); Hemoglobin 9.6 g/dl (14.0-18.0); Imm Gran Abs Auto 0.02 X10*3/uL (0.00-0.03); Imm Gran Pct Auto 0.3 % (0.0-0.4); Lymphocytes Absolute Auto 1.4 X10*3/uL (1.2-4.9); Mean Corpuscular HGB Conc 32.2 g/dl (31.0-36.0); Mean Corpuscular Hemoglobin 25.5 pg (27.0-33.0); Mean Corpuscular Volume 79.0 fL (80.0-98.0); NRBC Abs Auto 0.000 X10*3/uL (0.0-0.012); NRBC Pct Auto 0.0 /100WBC (0.0-0.2); Platelet Count 187 X10*3/uL (160-400); Red Blood Count 3.77 X10*6/uL (4.60-5.80); White Blood Count 5.7 X10*3/uL (4.8-10.8)
[2025-01-21 09:30] LABS: Anion Gap 11 (12-20); Blood Urea Nitrogen 22 mg/dL (9-16); Calcium 9.3 mg/dL (8.4-10.2); Carbon Dioxide 30 mmol/L (22-29); Chloride 100 mmol/L (96-108); Creatinine Clr Calc Pharmacy 54.3; Estimated Glomerular Filt Rate 54; Potassium 4.5 mmol/L (3.3-5.1); Sodium 136 mmol/L (135-145)
[2025-01-21 09:31] LABS: INTERNATIONAL NORM RATIO 1.0 (0.9-1.1); Prothrombin Time 11.5 SEC (10.9-12.4)
--- NOTE | 2025-01-21 10:46 | CT_ITS ---
ADDENDUM: Dose: 188 mGy/cm.. Sedation time: 18 minutes Electronically signed by: Romeo Viera MD 02/11/2025 6:09 AM [employer] EXAMINATION: CT-guided bone marrow aspiration-biopsy. CLINICAL INDICATION: Significant anemia comparison: None. TECHNIQUE: Following explaining CT fluoroscopy guided bone marrow aspiration/biopsy procedure, benefits and risk, a written consent was obtained. Patient was placed prone on CT table and preliminary CT imaging was obtained through the pelvis. An optimal site was selected on axial scan along the left posterior iliac crest and markers placed. Repeat imaging was obtained with the markers and an optimal marker was selected and marked on the skin. The marked site was cleaned and draped in usual sterile manner. 1% lidocaine was injected puncture site. Through a small skin incision a 16-gauge guide needle was advanced from the skin into the posterior iliac crest bone marrow beyond the cortical margin. The guide needle was removed and syringes attached and 50 mL of blood was aspirated and deposited in multiple vacuum tubes. Subsequently coaxially a biopsy guiding needle was introduced with a drill and a single core biopsy was obtained. The core was placed uneventfully gauze and sent to lab. Postprocedure the guide needle was withdrawn and complete hemostasis achieved at puncture site. Simple dressing applied at the puncture site. Patient tolerated procedure extremely well. Conscious sedation was utilized during exam. FINDINGS/IMPRESSION: On images obtained of the pelvis the soft tissues and the bowel gas pattern is unremarkable. No bony abnormality seen. The bladder is mildly distended. Successful CT fluoroscopy guided bone marrow aspiration and bone marrow biopsy performed without immediate complications. Electronically signed by: Romeo Viera MD 02/11/2025 6:01 AM [employer] [facility] CT/CT biopsy asp core bone marrow IMPRESSION: On images obtained of the pelvis the soft tissues and the bowel gas pattern is unremarkable. No bony abnormality seen. The bladder is mildly distended. Successful CT fluoroscopy guided bone marrow aspiration and bone marrow biopsy performed without immediate complications. Electronically signed by: Romeo Viera MD 02/11/2025 07:01 AM [facility] [employer]
== END 2025-01-21 13:32 | disposition home or self-care (01) ==
PROVIDERS: Radiology Diagnostic Radiology; PCP Internal Medicine; Visit Provider Internal Medicine Medical Oncology
DX: D64.9 Anemia, unspecified (principal); N40.0 Benign prostatic hyperplasia without lower urinary tract symptoms; E11.9 Type 2 diabetes mellitus without complications; M25.562 Pain in left knee; R00.2 Palpitations; M10.9 Gout, unspecified; J98.4 Other disorders of lung; J45.909 Unspecified asthma, uncomplicated; E78.5 Hyperlipidemia, unspecified; I10 Essential (primary) hypertension; R42 Dizziness and giddiness; G47.33 Obstructive sleep apnea (adult) (pediatric); Z79.4 Long term (current) use of insulin; Z79.84 Long term (current) use of oral hypoglycemic drugs; Z79.899 Other long term (current) drug therapy; Z99.89 Dependence on other enabling machines and devices; F14.90 Cocaine use, unspecified, uncomplicated; Z98.890 Other specified postprocedural states
CPT/HCPCS: 36415; 38220; 38222; 77012; 80048; 81455; 82947; 85025; 85610; 88184; 88185; 88237; 88264; 88291; 88305; 88311; 88313; 99152; J2003; J2250; J3010

== ENCOUNTER → 2025-01-21 10:46 | Outpatient (BNV) | payer MEDICARE, MEDICAID, SELFPAY | PROVIDERS: PCP Internal Medicine; Visit Provider Radiology Diagnostic Radiology | DX: D64.9 Anemia, unspecified (principal) | CPT/HCPCS: 38220 ==

== ENCOUNTER 2025-02-01 08:33 | Outpatient (REF) | payer MEDICARE, MEDICAID, SELFPAY ==
--- OUTSIDE RECORDS SUMMARY | 2025-02-01 08:36 | XMS_ITS | Clinical Summary ---
Author Organization [employer] Address [address] [facility] [address] [place] [address] Care Team Providers Care Help Desk Coordinator Name Role Phone Unavailable Primary Care Provider [...] patient's age to complete this topic Insurance [facility] STANDARD MEDICARE
--- OUTSIDE RECORDS SUMMARY | 2025-02-01 08:37 | XMS_ITS | Data Portability ---
Author Organization [facility], [facility] Address [address] [place] [address] Assessment No assessment recorded. Plan of Treatment Reminders Order Date Submit Date Provider Last Modified By Organization Details Last Modified Time Details Appointments None record ed. Lab None record ed. Referral None record ed. Procedures None record ed. Surgeries None record ed. Imaging None record ed. Medication Orders None record ed. Patient TargetsNo targets recorded. Patient InstructionsNo instructions recorded. Reason for Referral None Reported. Results Created Date Observation Date Name Description Value Unit Range Abnormal Flag Note LastModifiedBy Organization Detail LastModifiedTime 12/20/19 24 02/21/2022 imagi ng/di agnos tic resul t No observ ation record ed. [email or web address] Not Available 11/22 20:53:03 Result Notes None recorded. Procedures Surgical History Date Name Laterality Status Provider Name and Address Organization Details Recorded Time 11/18/2024 Sports Knee 4&1 completed Vernon Hoffman PA-C [address], [place], [address], [facility] 11/21/2024 21:54:08 07/23/2023 Sports Knee 4&1 completed Christiano Carey PA-C [address], [place], [address], [facility] 07/23/2023 12:02:04 Imaging Results None recorded. Procedure Notes None recorded. Medical Equipment None Reported. Allergies No known drug allergies Medications Name Sig Start Date Stop Date Status Note LastModified by Organization Details LastModified Time quetiapine 25 mg tablet TAKE 1-2 TABLET BY MOUTH EVERY NIGHT active Not Available Not Available No t Available terazosin 5 mg capsule 1 TABLET (5MG) ORALLY BEDTIME FOR 30 DAYS active Not Available Not Available No t Available atorvastati n 40 mg tablet TAKE 1 TABLET BY MOUTH EVERYDAY AT BEDTIME active Not Available Not Available No t Available carvedilol 25 mg tablet TOME 1 TABLETA POR V A ORAL DOS VECES AL D A active Not Available Not Available No t Available Saline Mist 0.65 % nasal spray aerosol USE NEEDED 2 SQUIRT IN THE NOSTRILS TWICE A DAY active Not Available Not Available No t Available albuterol sulfate 2.5 mg/3 mL (0.083 %) solution for nebulizatio n INHALE 2.5 MG (3 ML) INHALED EVERY 6 HOURS NEEDED FOR SHORTNESS OF BREATH OR WHEEZING FOR 30 DAYS active Not Available Not Available No t Available citalopram 40 mg tablet TAKE 1 TABLET BY MOUTH EVERY DAY AT NIGHT active Not Available Not Available No t Available metformin 850 mg tablet TAKE 1 TABLET BY MOUTH TWICE A DAY 07/22 completed Not Available Not Available Not Available amlodipine 5 mg tablet TOME 1 TABLETA POR V A ORAL TODOS LOS D active Not Available Not Available No t Available allopurinol 100 mg tablet TAKE 1 TABLET BY MOUTH EVERY DAY active Not Available Not Available No t Available pantoprazol e 20 mg tablet,john yed release TAKE 1 TABLET BY MOUTH TWICE A DAY active Not Available Not Available No t Available citalopram 20 mg tablet TAKE 1 TABLET BY MOUTH EVERY NIGHT YEMENI DIRECTION S PLEASE. THANKS active Not Available Not Available No t Available tamsulosin 0.4 mg capsule TOME 1 C PSULA POR V A ORAL TODOS LOS D AL ACOSTARSE active Not Available Not Available No t Available OneTouch Ultra Test strips TEST 3 TIMES A DAY DIRECTED 07/22 completed Not Available Not Available Not Available meclizine 25 mg tablet TOME 1 TABLETA POR V A ORAL EFREN VECES AL D A CUANDO SEA NECESARIO active Not Available Not Available No t Available metformin 1,000 mg tablet TOME 1 TABLETA POR V A ORAL DOS VECES AL D A active Not Available Not Available No t Available valsartan 320 mg tablet TAKE 1 TABLET BY MOUTH EVERY DAY active Not Available Not Available No t Available montelukast 10 mg tablet TOME 1 TABLETA POR V A ORAL TODOS LOS D EN LA NOCHE active Not Available Not Available No t Available azelastine 137 mcg (0.1 %) nasal spray USE 2 SPRAYS IN EACH NOSTRIL DAILY active Not Available Not Available No t Available albuterol sulfate HFA 90 mcg/actuati on aerosol inhaler TAKE 2 PUFFS BY MOUTH EVERY 6 HOURS NEEDED FOR FOR SHORTNESS OF BREATH WHEEZE active Not Available Not Available No t Available finasteride 5 mg tablet TOME 1 TABLETA POR V A ORAL TODOS LOS D active Not Available Not Available No t Available chlorhexidi ne gluconate 0.12 % mouthwash SWISH AND SPIT 15 ML BY MOUTH DAILY active Not Available Not Available No t Available valsartan 320 mg-hydrochl orothiazide 12.5 mg tablet TOME 1 TABLETA POR V A ORAL TODOS LOS D active Not Available Not Available No t Available BD Ultra-Fine Short Pen Needle 31 gauge x 5/16 USE 1 NEEDLE SUBCUTANE OUSLY EVERY DAY DIRECTED 07/22 completed Not Available Not Available Not Available Symbicort 160 mcg-4.5 mcg/actuati on HFA aerosol inhaler INHALE 2 PUFFS TWICE A DAY active Not Available Not Available No t Available cholecalcif kamlesh (vitamin D3) 50 mcg (2,000 unit) capsule TAKE 1 CAPSULE BY MOUTH EVERY DAY active Not Available Not Available No t Available Basaglleandro HahnikPen U-100 Insulin 100 unit/mL (3 mL) subcutaneou s INJECT 12 UNITS SUBCUTANE OUSLY AT BEDTIME active Not Available Not Available No t Available Plenvu 140 gram-9 gram-5.2 gram powder packs SPLIT DOSE 1/2 DOSE DAY BEFORE 1/2 DOSE DAY OF PROCEDURE (7HOURS BEFORE PROCEDURE ) 07/22 completed Not Available Not Available Not Available Vitals Date Recorded Body height Body mass index (BMI) Body weight Provider Name and Address Organization Details Last Updated DateTime 07/23/2023 165.1 cm 30.8 kg/m2 26274.59 g LEIGHA L'HEUREUX [place] [facility] [place] [facility] 07/23/2023 11:39:45 Date Recorded Body height Body mass index (BMI) Body weight Provider Name and Address Organization Details Last Updated DateTime 11/18/2024 165.1 cm 28.3 kg/m2 34678.7 g Vernon Hoffman PA-C [address], [place], [address], [place] [facility] [place] [facility] 11/18/2024 17:01:55 Social History Question Answer Notes LastModified by Organizat ion Details LastModified Time Tobacco Smoking Status Never Smoker LEIGHA OZUNA essie [place] [facility] 07/23/2023 11:42:48 Have You Ever Been Counseled For Unhealthy Alcohol Use? No Information not available 07/23/2023 What Is Your Relationship Status? Domestic Partner Information not available 07/23/2023 Sex: Unknown Functional Status Question Answer Note LastModified by Organizat ion Details LastModified Time How many times per week do you consume alcohol? Less than 1 time per week Information not available 07/23/2023 Do you use any illicit or recreational drugs? No Information not available 07/23/2023 Do you or have you ever used any other forms of tobacco or nicotine? No Information not available 07/23/2023 What is your level of alcohol consumption? Occasional Information not available 07/23/2023 Mental Status None recorded. Family History Nothing Reported. Medical History Condition Response Allergies/Hayfever Y Coronary Artery Disease N Anxiety/Depression N Emphysema N Thyroid Problems N COPD N Pacemaker N Anemia N Kidney/Bladder Problems N Vascular Disease N Heart Attack (DE) N Gastrointestinal Disease N Diabetes Y Autoimmune disease N Bleeding Disorder N Orthotics N Arthritis Y Seizures/Epilepsy N Blood Clot N AIDS/HIV N Congestive Heart Failure (CHF) N Acid Reflux (GERD) Y Cancer N Stroke N Asthma Y Peripheral Vascular Disease N Sleep Apnea N Hepatitis N Heart Disease N Rheumatoid Arthritis N Arrhythmia N Pulmonary Embolism N Fibromyalgia N Hypertension N Osteoporosis N Past Encounters Encounter ID Performer Location Encounter Start Date Encounter Closed Date Diagnosis/Indication Diagnosis SNOMED-CT Code Diagnosis ICD10 Code Diagnosis IMO Codes Diagnosis Note [id number] ALEJANDRA Sousa [address] [place] [address] 07/23/2023 11:22:08 2023 14:58:03 Osteoarthritis of knee 338150510 M17.12 You have been provided with a cortisone injection in order to reduce the pain and inflammati on that you are experienci ng. The injection consists of two medication s. Cortisone (an anti-infla mmatory that will take 48-72 hours to take effect) and Lidocaine (a numbing agent that will last 2-3 hours). Please note that not everyone will have a lasting response following the injection. PATIENT INSTRUCTIO NSOnce the Lidocaine wears off, you may have an increase in your pain. I recommend icing the affected area for 20 minutes 3-4 times per day.It is recommende d that you refrain from any high level activities using the joint or limb that was injected for approximat umm 24-48 hours. Normal day-to-day activities are generally not a problem.PO SSIBLE SIDE EFFECTSInd ividuals with dark complexion s may experience some skin discolorat ion locally at the site of the injection. There is the possibilit y of an increase in discomfort within 48 hours following the injection. This is called a marilu langley . To help minimize the chances of this, please see the post-injec tion instructio ns above.Ther e is a less than 1% chance of an infection. If you notice any signs of infection (redness, warmth, drainage, fever greater than 100 degrees) please call our office or contact us through the portal [facility]. [id number] ALEJANDRA Arias [address] [facility] [place] [address] 11/18/2024 16:48:22 12/03/2024 08:23:30 Osteoarthritis of left knee joint [id number] M17.12 [id number] Health Concerns Section Related Observation LastModified by Organization Detai ls LastModified Time None Recorded Concern Status LastModified by Organization Details LastModified Time None Recorded Advance Directives Directive None Recorded Payers Insurance Date Sequence Insurance Name Policy Number Policy Fall Covered Member ID Fall Member ID Guarantor Name 11/18/2024 1 [place] [employer] Pedro Crowell [id number] Pedro Crowell 12/03/2024 2 [place] [facility] Pedro Crowell [id number] Pedro Liramos Crowell Notes Date Note Type Note Provider Name and Address Organization Details Recorded Time 07/23/2023 text/html I am seeing the patient today under the supervision of Dr. Wilde who was available but who did not see the patient.HPI: Patient comes in for recheck of left knee pain. Has known osteoarthritis patellofemoral joint. Has undergone cortisone injections in the past with good relief. Complains of same pain today over the anterior aspect of the knee. Difficulty with the flexion activities. No new injury. No other modalities. Physical exam: The patient is well appearing and in no apparent distress. Alert and oriented x3. Gait is symmetric. Vital signs per intake sheet. Examination of left knee reveals no joint effusion erythema or warmth. No joint line tenderness. Tenderness over the lateral border of the patella. Supple range of motion to 120 . No ligamentous instability. Calf soft and nontender. Assessment: Osteoarthritis patellofemoral joint Plan: Nature diagnosis discussed with the patient today. At this time recommend a repeat cortisone injection. Patient agrees. Patient tolerated the procedure well. Postinjection precautions reviewed. Follow-up as symptoms dictate. Christiano Carey PA-C [address] [facility] [address] [facility], [place], [address], [facility] [place] 07/23/2023 12:02:36 11/18/2024 text/html ROS as noted in the HPI I am seeing the patient today under the supervision of Dr. Nam who was available but who did not see the patient. HPI:Patient presents today follow-up regarding their Left knee. They have had difficulty up and down stairs sitting standing.he previously received a cortisone injection by one of my colleagues approximately 16 months ago which gave him good relief up until recently. No recent injuries or falls. problems ambulating. Jcks-kis-oawoojf medications are helping somewhat but not significantly. Pain is constant aching sometimes sharp pain with giving out sensations. He would like to continue with cortisone today. Past family, medical, social history and review of systems has been reviewed, updated and is located in the patient s chart. Examination:The patient is well appearing and in no apparent distress. Alert and oriented x3. Gait is symmetric. Examination of the Left knee reveals no evidence of any edema, erythema, or warmth. No Deformity. Range of motion of the knee limited with mild discomfort at the end ranges. Minimla effusion. Does have some tenderness to palpation about the medial hemijoint line. No tenderness to palpation about the lateral hemijoint line. Patellofemoral crepitus is noted. mild medial ligamentous laxity. Negative Pk s . Calf is supple and nontender. Neurovascularly intact distally. Impression:Left Knee osteoarthritis Plan:We discussed the role of conservative management including medications, physical therapy, injection and bracing. At this point the patient was to proceed with injection. Please see procedure note. They will follow up with us as scheduled. Vernon Hoffman PA-C [address] [facility] [address], [place], [address], [facility] - [facility] 11/21/2024 21:54:27
[2025-02-01 11:16] LABS: Baso%MD 1.0 %; Eos%MD 5.7 %; Hematocrit 29.8 % (42.0-52.0); Hemoglobin 9.7 g/dl (14.0-18.0); IG%MD 0.2 %; Lymph%MD 33.7 %; Mean Corpuscular HGB Conc 32.6 g/dl (31.0-36.0); Mean Corpuscular Hemoglobin 25.9 pg (27.0-33.0); Mean Corpuscular Volume 79.5 fL (80.0-98.0); Mono%MD 8.6 %; NRBC Abs Auto 0.000 X10*3/uL (0.0-0.012); NRBC Pct Auto 0.0 /100WBC (0.0-0.2); Neut%MD 50.8 %; Platelet Count 228 X10*3/uL (160-400); Red Blood Count 3.75 X10*6/uL (4.60-5.80); White Blood Count 5.1 X10*3/uL (4.8-10.8)
[2025-02-01 11:25] LABS: Alanine Aminotransferase 24 U/L (0-40); Albumin Level 4.2 g/dL (3.5-5.0); Alkaline Phosphatase 45 U/L (39-117); Anion Gap 10 (12-20); Aspartate Amino Transferase 21 U/L (5-37); Blood Urea Nitrogen 26 mg/dL (9-16); Calcium 9.0 mg/dL (8.4-10.2); Carbon Dioxide 30 mmol/L (22-29); Chloride 103 mmol/L (96-108); Estimated Glomerular Filt Rate 57; Potassium 4.4 mmol/L (3.3-5.1); Sodium 139 mmol/L (135-145); Total Protein 6.9 g/dL (6.5-8.0)
[2025-02-01 11:48] LABS: Atypical Lymph Absolute Manual 0.1 x10*3/uL; Atypical Lymphs Percent Manual 1 % (0-6); Band Neutrophils Percent 0 % (3-5); Eosinophils Absolute Manual 0.3 X10*3/uL (0.0-0.4); Eosinophils Percent Manual 5 % (0-4); Lymphocytes Absolute Manual 1.5 X10*3/uL (1.2-4.9); Lymphocytes Percent Manual 30 % (20-40); Monocytes Absolute Manual 0.4 X10*3/uL (0.1-1.2); Monocytes Percent Manual 7 % (2-11); Neutrophils Absolute Manual 2.9 X10*3/uL (2.0-8.3); Neutrophils Percent Manual 57 % (45-73)
[2025-02-01 11:52] LABS: RBC Morphology NOTED
[2025-02-01 11:55] LABS: Burr Cells 2+ (3-5) /OIF; Ovalocytes 1+ (5-14) /OIF; Schistocytes 3+ (>5) /OIF
== END 2025-02-01 08:34 | disposition home or self-care (01) ==
LOC: HO.WFDLDS 08:33
PROVIDERS: Referring Provider Internal Medicine Hypertension Specialist; Visit Provider Internal Medicine Medical Oncology
DX: D64.9 Anemia, unspecified (principal)
CPT/HCPCS: 36415; 80053; 85007; 85027

== ENCOUNTER 2025-02-09 15:11 | Outpatient (AMB) | payer MEDICARE, MEDICAID, SELFPAY ==
--- NOTE | 2025-02-09 15:19 | HO.NEPHOV_ITS ---
Vital Signs 02/09/25 15:20 02/09/25 15:31 Height 5 ft 5 in Weight 176 lb BMI 29.3 BP 150/72 H 134/70 Blood Pressure Location Lt brachial Lt brachial Position Sitting Sitting Pulse 78 Pulse Source Pulse Oximeter Pulse Oximetry (%) 94 Oxygen Delivery Method Room Air Intake Visit Reasons: 2 Month F/U,left vm Senior Stock Plan Administrator Required: No Accompanied by: Self / Same As Patient Allergies No Known Allergies Allergy (Verified 02/09/25 15:21) HPI Comments Details: 63-year-old man with a history of diabetes mellitus hypertension referred for proteinuria. He has history of chronic anemia. He was evaluated by Hematology. This was deemed to be due to chronic disease. He is iron levels were low. He has not on any iron supplementation. Today has no new complaints. No headache nausea or vomiting. No shortness of breath no edema Senior Stock Plan Administrator service was used 08/20/23 Underwent ABPM 12/16/2023. Overall doing well. Tolerate his medications. Home blood pressure readings are acceptable. No new issues today. [facility] Medical History (Reviewed 11/23/24 @ 13:13 by [facility] Chronic restrictive lung disease RAMONA on CPAP Vertigo Gout Hyperlipemia Hypertension Heart palpitations Diabetes Asthma Anemia Surgical History H/O eye surgery Hx of cholecystectomy H/O knee surgery Family History Father No problems noted. Mother No problems noted. Other No family history of cancer Social History Household Members: Significant Other Housing: Apartment Are you a primary lawn care worker to a significant other at home: No Do you presently have visiting nurse or other home services: Yes Alcohol intake: former Patient Tobacco Use Status: Never used Tobacco Substance Use Type: Crack/Cocaine service: No Current occupational status: disabled Physical Exam Vital Signs: Last Vital Signs Pulse 78 02/09/25 15:20 BP 150/72 H 02/09/25 15:20 Pulse Ox 94 02/09/25 15:20 Oxygen Delivery Method Room Air 02/09/25 15:20 BMI result Body Mass Index 29.3 Const General: comfortable; No acute distress Orientation/consciousness: patient oriented x3 Eyes General: appearance normal, both eyes and all related structures Visual Rodriguez: normal visual rodriguez by confrontation Neck Neck: Yes supple and Yes no JVD Resp Effort & Inspection: normal respiratory effort and respiratory effort not decreased Auscultation: rhonchi Cardio Palpation: no palpable S3 and no palpable S4 Heart sounds: no rubs GI Inspection: Yes normal to inspection Palpation (GI): Soft to palpation Percussion: Yes normal to percussion Auscultation: normal bowel sounds General: Yes no CVA tenderness Back/Spine/Pelvis Back: no CVA tenderness Skin General skin exam: no petechiae and no purpura Neuro General: patient oriented x3 and no focal motor deficits Extrem General: No clubbing and No edema Results Reviewed Nephrology Results: Hgb, (14.0-18.0) 9.7 g/dl L 02/01/25 WBC, (4.8-10.8) 5.1 X10*3/uL 02/01/25 Plt Count, (160-400) 228 X10*3/uL 02/01/25 Sodium, (135-145) 139 mmol/L 02/01/25 Potassium, (3.3-5.1) 4.4 mmol/L 02/01/25 Chloride, (96-108) 103 mmol/L 02/01/25 Carbon Dioxide, (22-29) 30 mmol/L H 02/01/25 BUN, (9-16) 26 mg/dL H 02/01/25 Creatinine, (0.5-1.4) 1.28 mg/dL 02/01/25 Calcium, (8.4-10.2) 9.0 mg/dL 02/01/25 Urine Creatinine 82.79 mg/dL 11/12/24 Assessment & Plan Assessment & Plan (1) Proteinuria: Code(s): R80.9 - Proteinuria, unspecified Category: Medical (2) Anemia: Code(s): D64.9 - Anemia, unspecified Category: Medical (3) Hypertension: Code(s): I10 - Essential (primary) hypertension Category: Medical Plan: Plan Middle-aged man with microalbuminuria in the setting of longstanding diabetes mellitus and hypertension. The urine microalbumin creatinine ratio was 300. He is currently on valsartan for renal protection continue with RAAS blockade. Blood pressure should be maintained less than 130/80 and A1c less than 7%. 24 hour ABPM shows resistant HTN Encouraged him to stay on low-sodium diet Renal function stable with a creatinine of 1.3. EGFR is 52 mL/minute this has been relatively in this range since 2020. BP well controlled Keep Amlodipine to 10 mg daily Coding Level of Care Code Est Pt Level 4 (81778) Diagnoses Proteinuria R80.9 Anemia D64.9 Hypertension I10
[2025-02-09 15:20] VITALS: BP 150/72; PULSE 78; O2SAT 94; BMI 29.3
[2025-02-09 15:31] VITALS: BP 134/70
--- OUTSIDE RECORDS SUMMARY | 2025-02-09 20:23 | XMS_ITS | Data Portability ---
Author Organization [facility], [facility] Address [address] [place] [address] Assessment No assessment recorded. Plan of Treatment [...] Knee 4&1 completed Vernon Hoffman PA-C [address], [place], [address], [facility] 11/21/2024 21:54:08 07/23/2023 Sports Knee 4&1 completed Christiano Carey PA-C [address], [place], [address], [facility] 07/23/2023 12:02:04 Imaging Results None recorded. [...] TAKE 1 TABLET BY MOUTH EVERY NIGHT NIGERIAN DIRECTION S PLEASE. THANKS active Not Available [...] Updated DateTime 07/23/2023 165.1 cm 30.8 kg/m2 06085.59 g LEIGHA L'HEUREUX [place] [facility] 07/23/2023 11:39:45 Date Recorded Body height Body mass index (BMI) Body weight Provider Name and Address Organization Details Last Updated DateTime 11/18/2024 165.1 cm 28.3 kg/m2 09309.7 g Vernon Hoffman PA-C [address], [place], [address], [place] [facility] 11/18/2024 17:01:55 Social History Question Answer Notes LastModified by Organizat ion Details LastModified Time Tobacco Smoking Status Never Smoker LEIGHA OZUNA essie [place] [facility] 07/23/2023 11:42:48 Have You Ever Been [...] Thyroid Problems N COPD N Pacemaker N Kidney/Bladder Problems N Anemia N Vascular Disease N Gastrointestinal Disease N Heart Attack ([place]) N Diabetes Y Autoimmune disease N Bleeding [...] ICD10 Code Diagnosis IMO Codes Diagnosis Note [id number] ALEJANDRA Sousa [address] [place] [address] 07/23/2023 11:22:08 2023 14:58:03 Osteoarthritis of knee [id number] M17.12 You have been provided with a [...] office or contact us through the portal [facility]. [id number] ALEJANDRA Arias [address] [facility] [place] [address] 11/18/2024 16:48:22 12/03/2024 08:23:30 Osteoarthritis of left knee joint [id number] 74246 M17.12 [id number] Health Concerns Section Related Observation LastModified by Organization Detai ls LastModified Time None Recorded Concern Status LastModified by Organization Details LastModified Time None Recorded Advance Directives Directive None Recorded Payers Insurance Date Sequence Insurance Name Policy Number Policy Fall Covered Member ID Fall Member ID Guarantor Name 11/18/2024 1 [place] [employer] Pedro Crowell [id number] Pedro Crowell 12/03/2024 2 [place] [facility] Pedro Crowell [id number] Pedro Liramos Crowell Notes Date Note Type [...] as symptoms dictate. Christiano Carey PA-C [address] [facility] [address] [facility], [place], [address], [facility] 07/23/2023 12:02:36 11/18/2024 text/html ROS as [...] No recent injuries or falls. problems ambulating. Uyer-vgq-tbdkqad medications are helping somewhat but not significantly. [...] us as scheduled. Vernon Hoffman PA-C [address] [facility] [address], [place], [address], [facility] - [facility] 11/21/2024 21:54:27
--- OUTSIDE RECORDS SUMMARY | 2025-02-09 20:23 | XMS_ITS | Clinical Summary ---
Author Organization [employer] Address [address] [place] [address] 7[address] [place] [address] Care Team Providers Care Welt Insole Channeler Name Role Phone Unavailable Primary Care Provider [...] patient's age to complete this topic Insurance [facility] STANDARD MEDICARE
== END 2025-02-09 15:34 | disposition home or self-care (01) ==
LOC: HO.HKA 15:11
PROVIDERS: PCP Internal Medicine; Visit Provider Internal Medicine Hypertension Specialist
DX: R80.9 Proteinuria, unspecified (principal); D64.9 Anemia, unspecified; I10 Essential (primary) hypertension
CPT/HCPCS: 99214

== ENCOUNTER → 2025-02-09 15:11 | Outpatient (BNVA) | payer MEDICARE, MEDICAID, SELFPAY | PROVIDERS: PCP Internal Medicine; Visit Provider Internal Medicine Hypertension Specialist | DX: I10 Essential (primary) hypertension (principal); R80.9 Proteinuria, unspecified; D64.9 Anemia, unspecified; E11.9 Type 2 diabetes mellitus without complications | CPT/HCPCS: 99212 ==

== ENCOUNTER 2025-03-05 07:34 | Outpatient (REF) | payer MEDICARE, MEDICAID, SELFPAY ==
--- OUTSIDE RECORDS SUMMARY | 2025-03-05 07:38 | XMS_ITS | Clinical Summary ---
Author Organization [employer] Address [address] [facility] 7t [place] [address] Care Team Providers Care Regulatory Internship Name Role Phone Unavailable Primary Care Provider [...] patient's age to complete this topic Insurance [facility] STANDARD MEDICARE
--- OUTSIDE RECORDS SUMMARY | 2025-03-05 07:38 | XMS_ITS | Data Portability ---
Author Organization [facility], [facility] Address [address] [place] [address] Assessment No assessment recorded. Plan of Treatment [...] Knee 4&1 completed Vernon Hoffman PA-C [address], [place], [address], [facility] 11/21/2024 21:54:08 07/23/2023 Sports Knee 4&1 completed Christiano Carey PA-C [address], [place], [address], [facility] 07/23/2023 12:02:04 Imaging Results None recorded. Procedure [...] TAKE 1 TABLET BY MOUTH EVERY NIGHT TELUGU DIRECTION S PLEASE. THANKS active Not Available [...] Updated DateTime 07/23/2023 165.1 cm 30.8 kg/m2 56556.59 g LEIGHA L'HEUREUX [place] - [facility] 07/23/2023 11:39:45 Date Recorded Body height Body mass index (BMI) Body weight Provider Name and Address Organization Details Last Updated DateTime 11/18/2024 165.1 cm 28.3 kg/m2 38447.7 g Vernon Hoffman PA-C [address], [place], [address], [place] [facility] 11/18/2024 17:01:55 Social History Question Answer Notes LastModified by Organizat ion Details LastModified Time Tobacco Smoking Status Never Smoker LEIGHA OZUNA essie [place] [facility] 07/23/2023 11:42:48 Have You Ever Been Counseled [...] N Kidney/Bladder Problems N Vascular Disease N Gastrointestinal Disease N Heart Attack ([place]) N Diabetes Y Autoimmune disease N Bleeding Disorder N Orthotics N Seizures/Epilepsy N Arthritis Y Blood Clot N AIDS/HIV N Congestive Heart Failure (CHF) N Acid Reflux (GERD) Y Cancer N Stroke N Asthma Y Peripheral Vascular Disease N Sleep Apnea N Hepatitis N Heart Disease N Rheumatoid Arthritis N Pulmonary Embolism N Arrhythmia N Fibromyalgia N Hypertension N Osteoporosis N Past Encounters Encounter ID Performer Location Encounter Start Date Encounter Closed Date Diagnosis/Indication Diagnosis SNOMED-CT Code Diagnosis ICD10 Code Diagnosis IMO Codes Diagnosis Note [id number] ALEJANDRA Sousa 2nd floor [address] [place] [address] 07/23/2023 11:22:08 2023 14:58:03 Osteoarthritis of knee [id number] M17.12 You have been provided with a [...] office or contact us through the portal [facility]. [id number] ALEJANDRA Arias 1st Floor [address] [facility] [place] [address] 11/18/2024 16:48:22 12/03/2024 08:23:30 Osteoarthritis of left knee joint [id number] 67430 M17.12 [id number] Health Concerns Section Related Observation LastModified by Organization Detai ls LastModified Time None Recorded Concern Status LastModified by Organization Details LastModified Time None Recorded Advance Directives Directive None Recorded Payers Insurance Date Sequence Insurance Name Policy Number Policy Fall Covered Member ID Fall Member ID Guarantor Name 11/18/2024 1 [place] [employer] Pedro Crowell [id number] Pedro Crowell 12/03/2024 2 [place]: [facility] Pedro Crowell [id number] Pedro Liramos Crowell Notes Date Note Type [...] as symptoms dictate. Christiano Carey PA-C [address] [facility] [address] [facility], [place], [address], [facility] - [facility] 07/23/2023 12:02:36 11/18/2024 text/html ROS as noted [...] No recent injuries or falls. problems ambulating. Mjqp-yxw-gaciowh medications are helping somewhat but not significantly. [...] us as scheduled. Vernon Hoffman PA-C [address] [facility] [address], [place], [address], [facility] - [facility] 11/21/2024 21:54:27
[2025-03-05 12:40] LABS: Prostate Specific Antigen 1.44 ng/mL (<0.05-4.0)
== END 2025-03-05 07:35 | disposition home or self-care (01) ==
LOC: HO.WFDLDS 07:34
PROVIDERS: Visit Provider Nurse Practitioner Family
DX: R97.20 Elevated prostate specific antigen [PSA] (principal); R35.0 Frequency of micturition; Z12.5 Encounter for screening for malignant neoplasm of prostate
CPT/HCPCS: 36415; 84153

== ENCOUNTER 2025-03-24 11:11 | Outpatient (AMB) | payer MEDICARE, MEDICAID, SELFPAY ==
--- NOTE | 2025-03-24 11:25 | MHC.OFFVIS ---
Intake Visit Reasons: 4m/PSA/PVR/UA Intake Note: Patient is present for 4M/PSA/PVR/UA Urology Medication:TERAZOSIN,ALLOPURINOL,FINASTERIDE Antibiotic Allergy:NONE Blood Thinner:NONE TODAY'S PVR:0ML'S Mirror Department Supervisor Required: Yes Mirror Department Supervisor Services: Mirror Department Supervisor Present Mirror Department Supervisor Name: Adilia [id number] Allergies No Known Allergies Allergy (Verified 03/24/25 11:40) Medication List - Last Reconciled 03/24/25 by CHERYL Egan- albuterol sulfate 90 mcg/actuation 2 puffs PO Q6H PRN albuterol sulfate 2.5 mg (3 mL) inhalation Q6H PRN 30 days allopurinol 1 tab PO DAILY amlodipine 10 mg PO DAILY atorvastatin 40 mg PO DAILY azelastine 137 mcg intranasal DAILY carvedilol 1 tab PO BID chlorhexidine gluconate 0.12% 0.12 appl PO DAILY cholecalciferol (vitamin D3) 50 mcg PO DAILY citalopram 20 mg PO DAILY finasteride 5 mg PO DAILY insulin glargine (Basaglar KwikPen U-100 Insulin) 12 units subcut BEDTIME ketorolac 0.5% 0.5 drps ophthalmic (eye) DAILY meclizine 1 tab PO TID metformin 1,000 mg PO BID montelukast 10 mg PO QPM nebulizers As directed pantoprazole 1 tab PO BID quetiapine 25 - 50 mg PO BEDTIME Symbicort 160-4.5 mcg/actuation (budesonide-formoterol) 2 puffs PO BID NS terazosin 5 mg PO BEDTIME valsartan-hydrochlorothiazide 320-12.5 mg 1 tab PO DAILY HPI Comments Details: Pedro is a very pleasant 64-year-old Angolan-speaking male patient of Dr. Weaver. He has a past medical history of chronic restrictive lung disease, RAMONA on CPAP, vertigo, gout, hyperlipidemia, hypertension, palpitations, diabetes, asthma, and anemia. He presents to the office today for follow-up of his renal cysts, labile PSA, and lower urinary tract symptoms. In discussion with the patient today he reports to be doing and feeling well. He denies having had any bothersome urinary issues or concerns since his last visit. He reports compliance with finasteride and terazosin as ordered. Most recent PSA results reviewed with the patient today as noted and trended below: 10/12 3.8, 01/12 3.4, 07/13 1.2, 12/13 2.1, 11/13 2.6, 03/16 1.4 We discussed labile PSA. Previous workup has included a retroperitoneal ultrasound 02/11 noting right kidney with no hydronephrosis or renal calculi. A 2.6 cm upper pole, 2.1 cm midpole, 1.6 cm lower pole and 1.2 cm upper pole cysts with benign features. There is no indication for followup imaging per radiology report. Left kidney with no hydronephrosis or renal calculi. Multiple renal cysts, largest 1.5 cm upper pole, 2.5 cm upper pole and 1.4 cm midpole with benign features. There is no indication for followup imaging per radiology report. The bladder is well distended. Diffuse irregularity of bladder wall. Bladder wall thickness of 0.4 cm. Bilateral ureteral jets are demonstrated. Pre void bladder volume is approximately 310 mL. Postvoid bladder volume is approximately 15 mL. Prostate volume 26 mL. He currently denies any bothersome urinary issues or concerns. He reports be happy with current voiding parameters on 5 mg of terazosin at bedtime. He denies urinary urgency, urinary frequency, incontinence, nocturia, hematuria, dysuria, foul smelling urine, changes to urinary stream, flank pain, fever, and or chills. He otherwise offers no other issues or concerns at this time. In office urinalysis results reviewed with the patient today. PVR 0 mL. PFSH Medical History Chronic restrictive lung disease RAMONA on CPAP Vertigo Gout Hyperlipemia Hypertension Heart palpitations Diabetes Asthma Anemia Surgical History H/O eye surgery Hx of cholecystectomy H/O knee surgery Family History Father No problems noted. Mother No problems noted. Other No family history of cancer Social History Household Members: Significant Other Housing: Apartment Are you a primary care tech to a significant other at home: No Do you presently have visiting nurse or other home services: Yes Alcohol intake: former Patient Tobacco Use Status: Never used Tobacco Substance Use Type: Crack/Cocaine service: No Current occupational status: disabled Review of Systems Const Reports as per HPI Eyes Reports no additional complaints ENT Reports no additional complaints Card Reports as per HPI Resp Reports as per HPI GI Reports no additional complaints Reports as per HPI Musc Reports no additional complaints Neuro Reports no additional complaints Psych Reports no additional complaints Endo Reports as per HPI Perez/Lymph Reports no additional complaints Aller/Immun Reports no additional complaints Physical Exam Const General: cooperative, healthy appearing, comfortable, no acute distress, well developed, alert and awake Orientation/consciousness: patient oriented x3 Limitations: language barrier HEENT Head: Yes normal to inspection, Yes normocephalic and Yes atraumatic Ears: hearing grossly normal bilaterally Eyes General: appearance normal, both eyes and all related structures Neck Neck: Yes normal visual inspection and Yes trachea midline Chest Chest palpation & inspection: normal inspection of the chest Resp Effort & Inspection: normal respiratory effort and able to speak in complete sentences Cardio Rate: regular rate GI Inspection: Yes normal to inspection General: Yes no CVA tenderness Back/Spine/Pelvis Back: no CVA tenderness Skin General skin exam: no rashes or lesions noted Neuro General: patient oriented x3 Extrem General: Yes normal to inspection Psych Appearance: grossly normal and well kempt Mental Status: mental status grossly normal Speech and movement: Normal speech and movement present and Clear speech present Affect: normal affect Attitude: cooperative Thought process: Normal thought process present Thought content: Normal thought content present Insight: Fair insight present (Psych) Judgement: Fair judgement present (Psych) Office Procedures Post Void Residual Post Residual Void Post Void Residual (PVR): 0 82821-Cjzf Void Residual by ultrasound Results AMB Urinalysis, Automated UA Leukoctes 0 Martha/uL Last Edit by LOY Conde on 03/24/25 11:41 UA Nitrite Negative Last Edit by LOY Conde on 03/24/25 11:41 UA Urobilinogen 0.2 mg/dL Last Edit by LOY Conde on 03/24/25 11:41 UA Protein 30 mg/dL Last Edit by LOY Conde on 03/24/25 11:41 UA pH 6.5 Last Edit by LOY Conde on 03/24/25 11:41 UA Blood 0 Chinmay/uL Last Edit by LOY Conde on 03/24/25 11:41 UA Specific [place] 1.010 Last Edit by LOY Conde on 03/24/25 11:41 UA Ketone Negative Last Edit by LOY Conde on 03/24/25 11:41 UA Bilirubin 0 mg/dL Last Edit by LOY Conde on 03/24/25 11:41 UA Glucose 0 mg/dL Last Edit by LOY Conde on 03/24/25 11:41 Assessment & Plan Assessment & Plan (1) Elevated PSA: Code(s): R97.20 - Elevated prostate specific antigen [PSA] Category: Medical (2) Urinary frequency: Code(s): R35.0 - Frequency of micturition Category: Medical (3) Renal cyst: Code(s): N28.1 - Cyst of kidney, acquired Category: Medical (4) Proteinuria: Code(s): R80.9 - Proteinuria, unspecified Category: Medical (5) Urinary urgency: Code(s): R39.15 - Urgency of urination Category: Medical Plan Recent PSA results reviewed with the patient today; as noted above. PVR 0 mL Will continue terazosin and finasteride as prescribed. He currently denies any bothersome urinary issues or concerns. He reports be happy with current voiding parameters. Will continue with surveillance monitoring at this time. Will obtain PSA in 4- 6 months. All questions were answered. Continue to follow-up with nephrology as planned regarding proteinuria. Follow-up in 4-6 months with PSA and PVR; or sooner with any issues, concerns, and or questions. Orders: Orders AMB Urinalysis Automated Today Z13.9 - Encounter for screening, unspecified Prostate Specific Antigen 4 Months R97.20 - Elevated prostate specific antigen [PSA] Patient Instructions: The patient had an opportunity to ask questions regarding the treatment plan. All questions were answered. Physical exam, labs, and imaging were discussed and reviewed in detail. As well as risks, benefits, and discussion of treatment choices. No major barriers to understanding were identified. The patient expressed understanding and agreement with the above treatment plan. The patient was made aware they should contact our office by phone for worsening of their current condition, the appearance of new symptoms, or with any questions or concerns. Compliance is encouraged with any medications and follow up testing that is ordered. It is a privilege to be allowed the opportunity to participate in? your urological care.? Again, if you have any questions or concerns If you have any questions or concerns please do not hesitate to contact me. The office is [phone]. This note is constructed using voice recognition software. While every effort has been made to ensure accuracy billet grinder errors may have been included. Yours sincerely, JOVANI Egan Coding Level of Care Code Est Pt Level 3 (28788) Complex visit Add On G2211 Diagnoses Elevated PSA R97.20 Urinary frequency R35.0 Renal cyst N28.1 Proteinuria R80.9 Urinary urgency R39.15 CPT Codes Post Residual Void - PVR CPT Code: 82688-Fffg Void Residual by ultrasound ([id number])
--- OUTSIDE RECORDS SUMMARY | 2025-03-24 13:22 | XMS_ITS | Data Portability ---
Author Organization [facility], [facility] Address [address] [place] [address] Assessment No assessment recorded. Plan of Treatment [...] Knee 4&1 completed Vernon Hoffman PA-C [address], [place], [address], [facility] 11/21/2024 21:54:08 07/23/2023 Sports Knee 4&1 completed Christiano Carey PA-C [address], [place], [address], [facility] 07/23/2023 12:02:04 Imaging Results None recorded. [...] TAKE 1 TABLET BY MOUTH EVERY NIGHT EMIRATI DIRECTION S PLEASE. THANKS active Not Available [...] Updated DateTime 07/23/2023 165.1 cm 30.8 kg/m2 29785.59 g LEIGHA L'HEUREUX [place] - [place] [facility] 07/23/2023 11:39:45 Date Recorded Body height Body mass index (BMI) Body weight Provider Name and Address Organization Details Last Updated DateTime 11/18/2024 165.1 cm 28.3 kg/m2 53012.7 g Vernon Hoffman PA-C [address], [place], [address], [place] - [place] 11/18/2024 17:01:55 Social History Question Answer Notes LastModified by Organizat ion Details LastModified Time Tobacco Smoking Status Never Smoker LEIGHA OZUNA essie [place] - [place] [facility] 07/23/2023 11:42:48 Have You Ever Been [...] Problems N Vascular Disease N Heart Attack ([place]) N Gastrointestinal Disease N Diabetes Y Autoimmune [...] ICD10 Code Diagnosis IMO Codes Diagnosis Note [id number] ALEJANDRA Sousa [address]nd [address] [place] [address] 07/23/2023 11:22:08 2023 14:58:03 Osteoarthritis of knee [id number] M17.12 You have been provided with a [...] office or contact us through the portal [facility]. [id number] ALEJANDRA Arias 1st Floor [address] [facility] [address] 11/18/2024 16:48:22 12/03/2024 08:23:30 Osteoarthritis of left knee joint [id number] 67571 M17.12 [id number] Health Concerns Section Related Observation LastModified by Organization Detai ls LastModified Time None Recorded Concern Status LastModified by Organization Details LastModified Time None Recorded Advance Directives Directive None Recorded Payers Insurance Date Sequence Insurance Name Policy Number Policy Fall Covered Member ID Fall Member ID Guarantor Name 11/18/2024 1 [place] [employer] Pedro Crowell [id number] Pedro Crowell 12/03/2024 2 [place] [facility] Pedro Crowell [id number] Pedro Liramos Crowell Notes Date Note Type [...] as symptoms dictate. Christiano Carey PA-C [address] [facility] [address] [facility], [place], [address], [facility] - [place] [facility] 07/23/2023 12:02:36 11/18/2024 text/html ROS as [...] No recent injuries or falls. problems ambulating. Yjng-rdx-qzzlift medications are helping somewhat but not significantly. [...] us as scheduled. Vernon Hoffman PA-C [address] [facility] [address], [place], [address], [facility] - [place] 11/21/2024 21:54:27
--- OUTSIDE RECORDS SUMMARY | 2025-03-24 13:22 | XMS_ITS | Clinical Summary ---
Author Organization [email or web address] Address [address] [facility] 7[address] [place] [address] Care Team Providers Care General Cleaner Name Role Phone Unavailable Primary Care Provider [...] Additional history exists Influenza Vaccine (#1) 2024 , 04/27/2021, 12/25/2019, Additional history exists RSV Patients [...] patient's age to complete this topic Insurance [facility] STANDARD MEDICARE
== END 2025-03-24 11:56 | disposition home or self-care (01) ==
LOC: HO.HUSH 11:12
PROVIDERS: PCP Internal Medicine; Visit Provider Nurse Practitioner Family
DX: R97.20 Elevated prostate specific antigen [PSA] (principal); R35.0 Frequency of micturition; N28.1 Cyst of kidney, acquired; R80.9 Proteinuria, unspecified; R39.15 Urgency of urination; Z13.9 Encounter for screening, unspecified
CPT/HCPCS: 99213; G2211

== ENCOUNTER → 2025-03-24 11:11 | Outpatient (BNVA) | payer MEDICARE, MEDICAID, SELFPAY | PROVIDERS: PCP Internal Medicine; Visit Provider Nurse Practitioner Family | DX: R97.20 Elevated prostate specific antigen [PSA] (principal); N28.1 Cyst of kidney, acquired; R80.9 Proteinuria, unspecified; R35.0 Frequency of micturition; R39.15 Urgency of urination | CPT/HCPCS: 51798; 81003; 99212 ==